=== PATIENT | male | born 1940 | race Caucasian/White ===

== ENCOUNTER 2025-02-12 12:44 | Inpatient (IN) | payer MEDICARE, SELFPAY ==
[2025-02-12] VITALS (31 sets, daily range): BP systolic 81–155; BP diastolic 45–104; BMI 30.4
--- NOTE | 2025-02-12 08:52 | EDRN ---
Pt in room when this RN assumed assignment.
--- NOTE | 2025-02-12 08:54 | ED.GENMED ---
History of Present Illness
<John Bennett MD, Resident - Last Filed: 02/12/25 10:26>
General
Chief Complaint: Back Pain
Source: patient and significant other
Time Seen by Provider: 02/12/25 08:38
Nursing documentation reviewed up to this point in time: agreed with
History of Present Illness
History of Present Illness:
84 year old male with a past medical history of hypertension comes to the ED with rigors, chills and right flank pain that started around 7 pm last night. He was treated for a kidney infection at [facility] around 5 weeks ago and he says he
had similar symptoms to that at the time. Following the infection, patient had issues with Urinary Retention and ended up going to [facility] where a urinary catheter was placed. He has been following up with Urology who have been helping him
manage the urinary cathether. His right sided flank pain is sharp in nature and does not radiate. He has not had any issues with urination and says that he has not noticed any blood in his urine. He does not feel febrile but has chills since last
night. He does not have any shortness of breath, chest pain, or headache.
Past History
<John Bennett MD, Resident - Last Filed: 02/12/25 10:26>
Past History
ED Past Medical History: HTN
ED Past Surgical History: Orthopedic (Bilateral Knee Replacement) and Other (Hernia repair)
Review of Systems
<John Bennett MD, Resident - Last Filed: 02/12/25 10:26>
Review of Systems
Allergies reviewed?: Yes
Constitutional: Reports chills; Denies fever
EENT: Reports no symptoms
Respiratory: Reports no symptoms
Cardiac: Reports no symptoms
ABD/GI: Reports no symptoms
: Reports frequency and flank pain; Denies dysuria or bleeding
Musculoskeletal: Reports no symptoms
Skin: Reports no symptoms
Neurological: Reports no symptoms
Endocrine: Reports no symptoms
Hematologic/Lymphatic: Reports no symptoms
Psychiatric: Reports no symptoms
Phy Exam
<John Bennett MD, Resident - Last Filed: 02/12/25 10:26>
General Physical Exam
General Presentation: moderate distress
General age: appears stated age
General Skin: warm and dry
General Habitus: normal
General Mental: alert
General Hydration: appears well hydrated
Cardiovascular Exam
Cardiovascular Exam: no edema, no murmur and tachycardia
Pulmonary Exam
Pulmonary Exam: lungs clear, no respiratory distress, no rales, no crackles, no rhonchi, no wheezing and no cough
Gastrointestinal Exam
Gastrointestinal Exam: non tender, soft and non distended
Musculoskeletal Exam
Musculoskeletal Exam: back tenderness (Right flank pain)
Sepsis
<John Bennett MD, Resident - Last Filed: 02/12/25 10:26>
Sepsis Screening
Sepsis Assessment: Sepsis
Sepsis Screening: Lactate >2mmol/L
Sepsis Screen
Sepsis Screen: Sepsis
Date: 02/12/25
Time: 10:25
Course
<John Bennett MD, Resident - Last Filed: 02/12/25 10:26>
Orders/Labs/Results
Orders:
Orders
02/12/25 08:49
IV Insert/Care/Rem.- Treatment PRN
0.9% Sodium Chloride 1000 ml [Nss] 1,000 ml IV BOLUS
Acetaminophen [Tylenol] 1,000 mg PO NOW STA
02/12/25 08:52
CT Abd/pel Without Iv Or Oral Urgent
Comment:
Reason For Exam: Right flank pain
02/12/25 09:10
Complete Blood Count/With Diff Urgent
Comprehensive Metabolic Panel Urgent
Lactic Acid Q4H
Comment: CANCEL 2nd LACTIC ACID IF 1st LACTIC ACID IS LESS THAN 2
Blood Culture Q30M
STEPHANIE Source: Blood/Venous
Specimen Description:
02/12/25 09:35
Urinalysis Reflex To Culture Urgent
Date Specimen was Collected: 02/12/25
Time Specimen was Collected: 09:34
Urine Microscopic Reflex Cult Urgent
Blood Culture Q30M
STEPHANIE Source: Blood/Venous
Specimen Description:
Urine Culture Urgent
STEPHANEI Source: U
Specimen Description:
Date Specimen was Collected: 02/12/25
Time Specimen was Collected: 09:34
02/12/25 10:03
CefTRIAXone [Rocephin] 2,000 mg IV NOW STA
02/12/25 13:00
Lactic Acid Q4H
Comment: CANCEL 2nd LACTIC ACID IF 1st LACTIC ACID IS LESS THAN 2
Abnormal Lab Results
02/12/25 02/12/25
09:10 09:35
MCH 31.1 H pg
(27.0-31.0)
Absolute Neuts (auto) 10.2 H 10^3/uL
(1.4-6.5)
Absolute Lymphs (auto) 0.4 L 10^3/uL
(1.2-3.4)
Neutrophils % 95.0 H %
(42.2-75.2)
Lymphocytes % 3.4 L %
(20.5-51.1)
Monocytes % 0.6 L %
(1.7-9.3)
Carbon Dioxide 20 L mmol/L
(22-30)
BUN 28 H mg/dl
(9-20)
Glucose 149 H mg/dl
(70-99)
Lactic Acid 3.7 H mmol/L
(0.7-2.0)
Ur Occult Blood Reflex 4+ A
(Negative)
Urine Nitrite (Reflex) Positive A
(Negative)
Leukocyte Esterase Rfl 3+ A
(Negative)
Urine Bacteria (Reflex) Moderate A
(Negative)
Urine Albumin (Reflex) 2+ A
(Neg - Trace)
02/12/25 09:10
02/12/25 09:10
Vital Signs
Initial and Last Documented VS:
Initial Vital Signs
Temp Pulse Resp BP Pulse Ox
98.8 F 115 18 155/104 96
02/12/25 08:13 02/12/25 08:13 02/12/25 08:13 02/12/25 08:13 02/12/25 08:13
Last Documented Vital Signs
Temp Pulse Resp BP Pulse Ox
98.4 F 111 25 152/66 93
02/12/25 09:17 02/12/25 09:30 02/12/25 09:30 02/12/25 09:22 02/12/25 09:30
<Julio Cesar Garcia, DO - Last Filed: 02/12/25 10:02>
Orders/Labs/Results
Orders:
Orders
02/12/25 08:49
IV Insert/Care/Rem.- Treatment PRN
0.9% Sodium Chloride 1000 ml [Nss] 1,000 ml IV BOLUS
Acetaminophen [Tylenol] 1,000 mg PO NOW STA
02/12/25 08:52
CT Abd/pel Without Iv Or Oral Urgent
Comment:
Reason For Exam: Right flank pain
02/12/25 09:10
Complete Blood Count/With Diff Urgent
Comprehensive Metabolic Panel Urgent
Lactic Acid Q4H
Comment: CANCEL 2nd LACTIC ACID IF 1st LACTIC ACID IS LESS THAN 2
Blood Culture Q30M
STEPHANIE Source: Blood/Venous
Specimen Description:
02/12/25 09:35
Urinalysis Reflex To Culture Urgent
Date Specimen was Collected: 02/12/25
Time Specimen was Collected: 09:34
Urine Microscopic Reflex Cult Urgent
Blood Culture Q30M
STEPHANIE Source: Blood/Venous
Specimen Description:
Urine Culture Urgent
STEPHANIE Source: U
Specimen Description:
Date Specimen was Collected: 02/12/25
Time Specimen was Collected: 09:34
02/12/25 10:03
CefTRIAXone [Rocephin] 2,000 mg IV NOW STA
02/12/25 13:00
Lactic Acid Q4H
Comment: CANCEL 2nd LACTIC ACID IF 1st LACTIC ACID IS LESS THAN 2
Abnormal Lab Results
02/12/25 02/12/25
09:10 09:35
MCH 31.1 H pg
(27.0-31.0)
Absolute Neuts (auto) 10.2 H 10^3/uL
(1.4-6.5)
Absolute Lymphs (auto) 0.4 L 10^3/uL
(1.2-3.4)
Neutrophils % 95.0 H %
(42.2-75.2)
Lymphocytes % 3.4 L %
(20.5-51.1)
Monocytes % 0.6 L %
(1.7-9.3)
Carbon Dioxide 20 L mmol/L
(22-30)
BUN 28 H mg/dl
(9-20)
Glucose 149 H mg/dl
(70-99)
Lactic Acid 3.7 H mmol/L
(0.7-2.0)
Ur Occult Blood Reflex 4+ A
(Negative)
Urine Nitrite (Reflex) Positive A
(Negative)
Leukocyte Esterase Rfl 3+ A
(Negative)
Urine Bacteria (Reflex) Moderate A
(Negative)
Urine Albumin (Reflex) 2+ A
(Neg - Trace)
02/12/25 09:10
02/12/25 09:10
Vital Signs
Initial and Last Documented VS:
Initial Vital Signs
Temp Pulse Resp BP Pulse Ox
98.8 F 115 18 155/104 96
02/12/25 08:13 02/12/25 08:13 02/12/25 08:13 02/12/25 08:13 02/12/25 08:13
Last Documented Vital Signs
Temp Pulse Resp BP Pulse Ox
98.4 F 111 25 152/66 93
02/12/25 09:17 02/12/25 09:30 02/12/25 09:30 02/12/25 09:22 02/12/25 09:30
<John Bennett MD, Resident - Last Filed: 02/12/25 10:26>
MDM/Problems Addressed
Differential Diagnosis Includes:
Sepsis due to Urinary Tract Infection, Nephrolithiasis, Lumbar spine sprain/slipped disk
MDM/Problems Addressed:
84 year old male with history of recent kidney infection and indwelling Gordon catheter comes to the ED with right sided flank pain along with chills and rigors that began last night.
Highly suspicious for sepsis due to urinary tract infection.
Will give 1L of fluid, draw Lactate+Blood cultures, CBC/CMP and check Urinalysis
Will get CT Abd/Pel w/o IV contrast to check for any urinary stones. Patient mentioned he may have hurt his back while lifting some soda as well.
Pain control with Tylenol for now and increase as needed
Lactate positive, Urine positive for infection, Will give dose of Ceftriaxone 2g and admit to hospital for further management of sepsis
CT Abd/Pel shows moderate/marked right perinephric stranding and a 0.3-0.4cm calculus in distal right ureter as well as an enlarged prostate gland
<John Bennett MD, Resident - Last Filed: 02/12/25 10:26>
*Pulse Oximetry
SaO2: 96
Oxygen Mode of Delivery: Room air
<Julio Cesar Garcia, DO - Last Filed: 02/12/25 10:02>
*Radiology
Radiology exam reviewed: radiology read reviewed
*Pulse Oximetry
Patient hypoxic: no
*Critical Care Note
Total Time (30-74mins, 75-104mins- exclusive of procedures): Not Applicable
ED Attending Note
<John Bennett MD, Resident - Last Filed: 02/12/25 10:26>
-
Portions of this chart may have been created with voice recognition software.� Occasional wrong word or��sound alike� substitutions may have occurred due to the inherent limitations of voice recognition software.
<Julio Cesar Garcia, DO - Last Filed: 02/12/25 10:02>
ED Attending Note
Patient seen and examined by attending physician: Yes
I performed a history and physical exam of patient and discussed management with resident, I reviewed resident's note and agree with documented findings and plan of care.: Yes
ED Attending Note:
Seen with resident examined independently 84-year-old male recent admission to [place] with urosepsis and bacteremia discharged to home developed urinary retention seen at [facility], catheter was placed followed up with his urologist failed
attempted removal replaced, now presents with chills shakes and back pain similar to his initial presentation to [place]
Discharge Plan
Departure
Patient Disposition: Admit
Date of Disposition: 02/12/25
Time of Disposition: 10:17
Admit to: Med/Surg
Presentation/result/management discussed w/ accepting MD/DO: Hospitalist
Condition: Fair
Discharge Problem:
Urinary tract infection
Prescriptions:
No Action
lisinopril 40 mg Tablet
40 mg PO DAILY
Referrals:
Trcae Myles MD [Family Provider, [facility]]
Interventions
Interventions:
*Risk Screen - Suicide Last Done: 02/12/25 09:00
*General Assessment Last Done: 02/12/25 08:58
*Neglect/Abuse Screening Last Done: 02/12/25 08:13
*ED- Fall Risk Assessment Last Done: 02/12/25 08:58
*ED COVID-19 Vaccine History Last Done: 02/12/25 08:58
ED-Musculoskeletal Assessment Last Done: 02/12/25 09:24
Discharge Date and Time
Print Language: MACEDONIAN
[2025-02-12] MEDS: NSS 1000 IV ×5 (09:09→23:22)
[2025-02-12] MEDS: TYLENOL 1000 MG PO (09:15)
[2025-02-12 09:21] LABS: Hematocrit 47.2 % (39.0-52.0); Hemoglobin 16.8 g/dL (13.0-18.0); Mean Corp Hgb Conc. 35.6 g/dL (33.0-37.0); Mean Corpuscular Volume 87.4 fL (80.0-94.0); Nucleated Red Blood Cells % 0 % (-); Platelet Count 182 10^3/uL (130-400); Red Cell Dist. Width 13.2 % (11.5-14.5)
--- NOTE | 2025-02-12 09:55 | EDRN ---
Dr. Garcia in room w/pt at this time.
[2025-02-12 09:58] LABS: Urine Character Clear (Clear)
[2025-02-12 10:12] LABS: Urine Red Blood Cell 0-2 /HPF (0-2); Urine Squamous Cell 0-2 /LPF (Few); Urine White Cell 0-2 /HPF (0-5)
[2025-02-12 10:15] LABS: ALT (SGPT) 19 U/L (0-50); AST (SGOT) 24 U/L (17-59); Albumin 4.3 g/dl (3.5-5.0); Alkaline Phosphatase 100 U/L (38-126); Blood Urea Nitrogen 28 mg/dl (9-20); Calcium 8.6 mg/dl (8.4-10.2); Carbon Dioxide 20 mmol/L (22-30); Chloride 107 mmol/L (98-107); Estimated Creatinine Clearance 58 ml/min; Glucose 149 mg/dl (70-99); Potassium 3.9 mmol/L (3.5-5.1); Sodium 140 mmol/L (135-145); Total Protein 7.0 g/dl (6.3-8.2); eGFR 59.63
[2025-02-12] MEDS: ROCEPHIN 2000 MG IV (10:38)
--- NOTE | 2025-02-12 10:48 | EDRN ---
Dr. Elyse Webb Resident w/ hospitalist group in room w/ pt at this time.
--- NOTE | 2025-02-12 10:59 | HPS.HSE ---
Family Physician
<Donnell Bustillos MD, Resident - Last Filed: 02/12/25 12:19>
-
Family Physician: Trace Myles
Chief Complaint
<Donnell Bustillos MD, Resident - Last Filed: 02/12/25 12:19>
-
Right flank pain
History of Present Illness
This is an 84-year-old male with past medical history of hypertension, CVA, BPH, chronic urinary retention with chronic Gordon, recurrent UTIs who presents to ED complaining of ongoing right flank pain that started last night. In addition patient
admits to fever and chills that started this morning. Patient reports pain is sharp, rates his pain as a 7 out of 10 that does not radiate anywhere else. Pertinent to patient's history, patient with history of BPH, recurrent UTI, chronic urinary
retention with a chronic Gordon. Reports he was admitted at [facility] 1 month ago for bacteremia. He returned back to [facility] a few days after discharge due to urinary retention. A catheter was placed in the ED, and he was asked
to follow-up with urology as an outpatient. Patient states he has had multiple issues with urinary retention and failed attempted removal, and has had multiple ED visits including [facility], [facility] for urinary catheter
placement. He follows his urologist Dr. Rosalino Redd at [facility], and a plan was to perform a procedure(name Unk) on 03/03. He denies blood in his urine. Denies recent antibiotic use.
Upon presentation to the ED, BP 155/104, pulse 115, temperature 98.8, respiratory rate 18, O2 sat 96% on room air.� Laboratory shows WBC 10.7, hemoglobin 16.8, platelets 182.� BMP shows normal electrolytes, glucose 149 lactic acid 3.7.� Urinalysis
positive.
Medical History
<Donnell Bustillos MD, Resident - Last Filed: 02/12/25 12:19>
Past Medical History
Past Medical History: Reports Other (hypertension, CVA, BPH, chronic urinary retention with chronic urinary catheter, recurrent UTIs, essential tremor, chronic insomina)
Past Surgical History: Reports Orthopedic
Social History
Tobacco: Former Smoker
Alcohol: Occasional
Drug: None
Personal:
Living: With Family
Family History
Family History: Not pertinent
Allergies / Home Medications
Allergies reflects when Allergies were last updated in [employer].
Home Medications with original date entered in [employer]
Allergy/Medication List:
Allergies
Allergy/AdvReac Type Severity Reaction Status Date / Time
Sulfa (Sulfonamide Allergy Unknown Verified 02/12/25 08:13
Antibiotics)
tetracycline Allergy Unknown Verified 02/12/25 08:18
Home Medications
cyanocobalamin (vitamin B-12) 1,000 mcg tablet 1,000 mcg PO DAILY 02/12/25
diphenhydramine 25 mg-acetaminophen 500 mg tablet (Acetaminophen PM) 2 tab PO HS 02/12/25
finasteride 5 mg tablet 5 mg PO DAILY 02/12/25
hydrochlorothiazide 25 mg tablet 25 mg PO DAILY 02/12/25
lisinopril 40 mg tablet 40 mg PO DAILY 02/12/25
meloxicam 15 mg tablet 15 mg PO DAILY 02/12/25
nortriptyline 10 mg capsule 10 mg PO HS 02/12/25
nortriptyline 10 mg capsule 10 mg PO HSPRN PRN sleep 02/12/25
primidone 50 mg tablet 50 mg PO HS 02/12/25
primidone 50 mg tablet 100 mg PO DAILY 02/12/25
tamsulosin 0.4 mg capsule (Flomax) 0.8 mg PO QPM 02/12/25
Review of Systems
<Donnell Bustillos MD, Resident - Last Filed: 02/12/25 12:19>
-
A 12 point ROS was completed and negative except as noted: Yes
Constitutional: Reports Other (All review of system reviewed and negative except as documented in HPI)
Physical Exam
<Donnell Bustillos MD, Resident - Last Filed: 02/12/25 12:19>
Vital Signs
Vital Signs
Temp Pulse Resp BP Pulse Ox
98.4 F 106 23 136/71 92
02/12/25 09:17 02/12/25 10:45 02/12/25 10:45 02/12/25 10:00 02/12/25 10:45
Physical Exam
General: Well Developed, No Apparent Distress and Chills
Respiratory: Clear
Cardiac: S1/S2 and Regular Rhythm
GI: Soft, Non Distended, Normal Bowel Sounds and Tender (right lower quadrant, with flank pain)
Genito-urinary: Clear Urine and Other (urinary catheter)
Musculoskeletal: No Edema
Neuro: Awake, Alert, Oriented and AO x 3
<Bong Carter MD - Last Filed: 02/12/25 12:36>
Physical Exam
General: Pain
Psych: Calm
Laboratory Results
<Donnell Bustillos MD, Resident - Last Filed: 02/12/25 12:19>
-
02/12/25 09:10
02/12/25 09:10
Laboratory Results
Lactic Acid 3.7 mmol/L (0.7-2.0) H 02/12/25 09:10
Total Bilirubin 1.1 mg/dl (0.2-1.3) 02/12/25 09:10
AST 24 U/L (17-59) 02/12/25 09:10
ALT 19 U/L (0-50) 02/12/25 09:10
Alkaline Phosphatase 100 U/L (38-126) 02/12/25 09:10
Impression/Plan
<Donnell Bustillos MD, Resident - Last Filed: 02/12/25 12:19>
-
Assessment/plan
#Severe sepsis with lactic acidosis POA secondary to obstructing ureteral stone and Gordon catheter
-CT abdomen-Approximate 0.3-0.4 cm calculus in the distal right ureter, just proximal to the right ureterovesical junction with mild right hydroureteronephrosis and moderate to marked right perinephric stranding. Mild left perinephric stranding
without findings to suggest left-sided obstructive uropathy.
-Given IV ceftriaxone in the ED,
-Switch Abx to IV Cefepime and Vancomycin.
-Lactate on presentation 3.8, trend lactate to normal
-Urinalysis positive, urine cultures pending
-Blood cultures pending
-IV fluids, will do generous IVF for now. Expect post stone manipulation sepsis
-Continue pain Meds with Tylenol, IV Dilaudid
-d/w urologist , plan to OR for stent Vs Perc.
-Appreciate urology & ID
#Chronic urinary retention with chronic Gordon
#BPH, per patient : very large
-Definitive Treatment after treating the infection per OP setting
-Continue finasteride, Flomax
-Continue Gordon catheter
-Monitor output
-Primary urologist Dr Redd at [facility]
#Essential Hypertension
-Will hold lisinopril, hctz to protect kidney
-Will use PRN hydralazine
#Chronic Insomnia
-Continue nortriptyline
#Essential Tremor
-Continue primidone
#History of CVA
-Continue aspirin
#Small hiatal hernia
-Asymptomatic, monitor
CODE STATUS full code
DVT prophylaxis Heparin subcu
--- NOTE | 2025-02-12 11:06 | EDRN ---
Pharmacist called about vancocin order at this time.
[2025-02-12] MEDS: VANCOCIN 540 MG IV (11:23)
--- NOTE | 2025-02-12 12:18 | EDRN ---
Report given to Maritza Rubio RN in OR at this time. Dr. Coleman has the permit.
--- NOTE | 2025-02-12 13:08 | W.PN.URO.CBU ---
Today's Communication / Plan
-
to op room
Assessment / Plan
-
rt stone with sepsis syndrome will attempt stent
Diagnosis
-
Date of Service: February 12, 2025
-
Patient Diagnosis:rt ureteral stone in pt rt renal obstruction ans sepsis last week fhas puga associate uti
Post Op Day:
Subjective
-
feels lousy and rt colic
Objective
-
Vital Signs
Temp Pulse Resp BP Pulse Ox
98.4 F 108 27 128/69 96
02/12/25 09:17 02/12/25 12:15 02/12/25 12:15 02/12/25 12:00 02/12/25 12:15
Intake and Output
02/11/25 02/12/25 02/13/25
06:59 06:59 06:59
Output Total 200 / 200
Balance -200 / -200
Output:
Urine, Puga 200 / 200
Laboratory Results
02/12/25 09:10
02/12/25 09:10
Review of Systems
-
: Flank Pain and Difficulty Voiding
Physical Exam
-
General - well developed, well nourished, no acute distress
Chest - clear bilaterally
Abdomen - soft, non-tender, positive bowel sounds, no CVAT, no incisional pain or distention
Genitalia - normal
Rectal - normal
Skin - warm & dry with no rash
Neuro - AOx3, no motor deficits
Extremities - no clubbing, no cyanosis, no edema
Incision - clean, dry
Dressing - clean, dry, intact
Care Review
Data Reviewed
Discussed with: Hospitalist, Nursing and Family
CT Scan: Image Pers Reviewed
--- NOTE | 2025-02-12 14:14 | W.SUR.POST ---
Surgical Immediate Post Op
Note
Pre Op Diagnosis: sepsis with obstructing distal rt uretal stone
Post Op Diagnosis: same
Procedure Performedcysto stone manipulation stent
Primary Surgeon: huong
Secondary Surgeons:
Anesthesiagenral dr cobb:
Estimated Blood Loss: 1
Fluids: nss
Drains/Shunts:6 fr 24 cm jj stent
Specimens/Cultures:
Doppler/Duplex/Angio (Y/N):
Complications: 0
Operative Findings:
obstructing stone manipulated abnd dstentted
--- NOTE | 2025-02-12 14:27 | W.PN.UPDATE ---
Update Note
Progress Note Update
Addendum
Discussed with Dr. Coleman. Patient tolerated the procedure but remained with high fever, tachycardia, recommend ICU observation overnight.
Consult [facility], discussed with Dr. Kelley, appreciate help.
end
--- NOTE | 2025-02-12 14:33 | PHA.VAN.IN ---
Assessment
- Assessment
Renal Function: Unknown baseline
Concomitant Antimicrobials: cefepime
Plan
- Plan
Initial / Loading Dose: 2000mg - 02/12 11:23
Maintenance Regimen: dosing by level given unknown baseline
Monitoring: random 02/13 06
Pharmacokinetics Vancomycin I
- -
Patient Age: 84
Patient Sex: Male
Vancomycin Day #: 1
Indication: Genito-Urinary Tract
Requesting Provider: Dr. Carter
Pertinent Antimicrobial Allergies:
Sulfonamide antibiotics - unknown; > 50 years ago
tetracycline - unknown
Height / Weight:
Height 6 ft 1 in
Actual Weight 104.4 kg
Pertinent Past Medical History: BMI ~30
- Vital Signs / Lab Results
Temp Pulse Resp BP Pulse Ox
98.4 F 103 18 124/50 98
02/12/25 09:17 02/12/25 14:15 02/12/25 14:15 02/12/25 14:15 02/12/25 14:15
Lab Results - Hematology
02/12/25
09:10
WBC 10.7
Lab Results - Chemistry
02/12/25
09:10
BUN 28 H
Creatinine 1.2
Estimated Creat Clear 58
Albumin 4.3
02/12/25 02/12/25
09:10 13:00
Lactic Acid 3.7 H Cancelled
Lab Results - Urine
02/12/25
09:35
Urine Nitrite (Reflex) Positive A
Leukocyte Esterase Rfl 3+ A
Urine WBC (Reflex) 0-2
Ur Squamous Epith Cells 0-2
Urine Bacteria (Reflex) Moderate A
[2025-02-12 16:16] LABS: Glucose - Point of Care 130 mg/dl (70-99)
--- NOTE | 2025-02-12 16:17 | CON.INTV ---
Consultation
Consultation Request
Date/Time Consultation Requested: 02/12/2025
Date/Time Consultation Performed: 02/12/2025
Requesting Provider: Dr. Carter
Performing Provider: Dr. Tristen Kelley
Reason for Consultation: Severe sepsis
Medical History
-
History of Present Illness:
84-year-old man who was admitted to the hospital on 02/12/2025 complaining of right renal colic, fevers, rigors at home. Patient has signs of severe sepsis with increased lactic acid, borderline hemodynamics.
Patient has history of BPH which was significant.
CT of the chest was consistent with pyelonephritis, right hydronephrosis obstructive nephrolithiasis.
Underwent emergent cystoscopy with ureteral stent placement. During the procedure patient developed hypotension requiring fluid resuscitation.
Concerns for evolving septic shock. Transferred to the critical care unit for close monitoring and possible pressor support.
Past Medical History
Past Medical History: Other (See assessment and plan)
Social History
Tobacco: Former Smoker
Alcohol: Occasional
Drug: None
Personal:
Living: With Family
Family History
Family History: Reviewed & Not Pertinent
Allergies / Home Medications
Allergies
Allergy/AdvReac Type Severity Reaction Status Date / Time
Sulfa (Sulfonamide Allergy Unknown Verified 02/12/25 08:13
Antibiotics)
tetracycline Allergy Unknown Verified 02/12/25 08:18
Home Medications
�Medication �Instructions �Recorded �Confirmed �Last Taken �Type
cyanocobalamin (vitamin B-12) 1,000 mcg PO DAILY 02/12/25 02/12/25 02/12/25 History
1,000 mcg tablet
diphenhydramine 25 2 tab PO HS 02/12/25 02/12/25 02/11/25 History
mg-acetaminophen 500 mg tablet
(Acetaminophen PM)
finasteride 5 mg tablet 5 mg PO DAILY 02/12/25 02/12/25 02/12/25 History
hydrochlorothiazide 25 mg tablet 25 mg PO DAILY 02/12/25 02/12/25 02/12/25 History
lisinopril 40 mg tablet 40 mg PO DAILY 02/12/25 02/12/25 02/12/25 History
meloxicam 15 mg tablet 15 mg PO DAILY 02/12/25 02/12/25 Unknown History
nortriptyline 10 mg capsule 10 mg PO HS 02/12/25 02/12/25 02/11/25 History
nortriptyline 10 mg capsule 10 mg PO HSPRN PRN sleep 02/12/25 02/12/25 Unknown History
primidone 50 mg tablet 50 mg PO HS 02/12/25 02/12/25 02/11/25 History
primidone 50 mg tablet 100 mg PO DAILY 02/12/25 02/12/25 02/12/25 History
tamsulosin 0.4 mg capsule (Flomax) 0.8 mg PO QPM 02/12/25 02/12/25 02/11/25 History
Review of Systems
-
History Source: Patient
All other systems: Negative unless noted
Vitals / Labs / Diagnostic Testing
Vital Signs
Temp Pulse Resp BP Pulse Ox
100.2 F 103 24 103/50 93
02/12/25 15:45 02/12/25 15:45 02/12/25 15:45 02/12/25 15:45 02/12/25 15:45
Lab Data
02/12/25 09:10
02/12/25 09:10
Diagnostic Testing:
Physical Exam
-
HEENT: Normocephalic
Cardiovascular: S1/S2
Respiratory: Clear and Non-Labored Respirations
GI: Soft, Non Distended and Other (Gordon in place with clear urine)
Neurology: Awake, Alert and No Motor Deficits
Skin: Warm
General: Comfortable
Assessment
-
Severe sepsis/hypotension
Obstructive uropathy: Hydronephrosis and pyelonephritis on CAT scan on the right.
Status post emergent double-J stent placement with cystoscopy 02/12/2025
Lactic acidosis-3.7
Metabolic acidosis
Conditions present prior admission:
Hypertension
BPH-severe
CVA
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
Recurrent UTI
Essential tremor
Chronic insomnia
Former smoker
Assessment and plan:
Critically ill-severe sepsis and possibly evolving septic shock postprocedure.
Source is urinary-obstructive uropathy with right obstructing nephrolithiasis with hydronephrosis and pyelonephritis.
-
Agree with broad-spectrum antibiotic
Follow fever curve
Follow-up blood culture and urine culture
-
IV fluid resuscitation-normal saline 150 cc an hour.
Levophed will be used if blood pressure persistently under 65 mmHg
Follow-up urinary output
Follow renal function
-
Will trend lactic acid
-
Urology correspondence reviewed-Gordon will be in place.
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
-
Advance diet as tolerated
DVT prophylaxis heparin subcu.
Data review:
CT abdomen pelvis 02/12/2025:
0.3-0.1 cm calculus seen in the distal right ureter-just proximal to the right ureterovesical junction with mild distal right ureteral distention.
Mild prostate enlargement
Small to moderate left inguinal hernia
Right renal collecting system and right ureteral dilatation. There is moderate to marked right/left perinephric stranding.
-
Critical care statement: A total of 33 minutes of critical care time was provided for this patient today. This includes management of unstable vital signs, evaluation of the patient at bedside, reviewing the patient's pertinent medical records
including ventilator settings, arterial blood gases, radiographs, microbiology, laboratory evaluations and discussion with primary team, critical care nursing, and respiratory therapy.
--- NOTE | 2025-02-12 16:43 | PTCARENOTE ---
pt received from pacu. pt aaox3. states no pain. room air breath sounds diminished. ivf running. puga in place draining yellow. at bedside reviewed plan of care.
[2025-02-12] MEDS: FLOMAX 0.8 MG PO (18:04)
--- NOTE | 2025-02-12 18:24 | CON.ID ---
Consultation
-
Date/Time Consultation Requested: 02/12/25
Date/Time Consultation Performed: 02/12/25
Requesting Provider: Dr Cristo Webb
Performing Provider: Dr Nichole
Reason for Consultation: obstructive uropathy with nephrolithiasis and concern for uro-sepsis
Chief Complaint / Past History
Chief Complaint
Patient was awakened from sleep last PM with severe back ache with history of recent recent kidney last month and placement of chronic in-dwelling puga catheter
History of Present Illness
The patient presented at the ED and was seen by urology in setting of obstructive uropathy found on imaging with stranding noted on the left kidney without obstruction and with stranding in the right kidney with obstructive stone noted in the right
distal ureter with mild right hydroureter
The patient had urologic procedure today wth placement of temporary stent placement
Concerning findings of leukocytosis with WBC 10.7 with 95% pMN and LA of 3.7 were present patient emained afebrile
Past History
Past Medical History: CVA, HTN and Other (BPH, frequent UTI's,tremor,insomnia)
Past Surgical History: Orthopedic
Allergy History:
Sulfa (Sulfonamide Antibiotics) Allergy (Verified 02/12/25 08:13)
Unknown
tetracycline Allergy (Verified 02/12/25 08:18)
Unknown
Medications Reviewed: Yes
Social History
Tobacco: Former Smoker
Alcohol: Occasional
Drug: None
Personal:
Living: With Family
Employment: Employed
Family History
Family History: Not Pertinent
Review of Systems
Review of Systems
Genital / Urological: Hematuria, Stones, Flank Pain and Other (back pain)
All systems: All other systems were reviewed and were negative
Vital Signs
Temp Pulse Resp BP Pulse Ox
98.1 F 98 23 81/46 93
02/12/25 16:00 02/12/25 18:15 02/12/25 18:15 08/05/25 18:08 02/12/25 18:15
Physical Exam
Physical Exam
Constitutional: No Acute Distress, Well Developed, Acutely Ill, Non-toxic and Obese
Head: Normocephalic
Eyes: Pupils Equal, Pupils Round, No Conjunctival Hemorrhage and Sclera Anicteric
Pharynx: Benign
Oral: No Thrush and No Ulcers
Cardiovascular: Regular Rate
Pulmonary: Clear, Symmetric and Non Labored
Gastrointestinal: Soft, Tender and Decreased Bowel Sounds
Genito-Urinary: Puga, CVA Tenderness and Turbid Urine
Skin: Warm and Dry
Wound: None
Neurological: Awake, Alert, Oriented, AO x 3 and No Motor Deficits
Psychological: Calm
Lab / Diagnostic Study Results
02/12/25 09:10
02/12/25 09:10
Abs Immat Gran (auto) 0.0 10^3/uL (0-0.05) 02/12/25 09:10
Absolute Neuts (auto) 10.2 10^3/uL (1.4-6.5) H 02/12/25 09:10
Absolute Lymphs (auto) 0.4 10^3/uL (1.2-3.4) L 02/12/25 09:10
Absolute Monos (auto) 0.1 10^3/uL (0.1-0.6) 02/12/25 09:10
Absolute Basos (auto) 0.0 10^3/uL (0-0.2) 02/12/25 09:10
Immature Gran % 0.4 % (0-0.5) 02/12/25 09:10
Neutrophils % 95.0 % (42.2-75.2) H 02/12/25 09:10
Lymphocytes % 3.4 % (20.5-51.1) L 02/12/25 09:10
Monocytes % 0.6 % (1.7-9.3) L 02/12/25 09:10
Eosinophils % 0.2 % (0-6) 02/12/25 09:10
Basophils % 0.4 % (0-2) 02/12/25 09:10
Lactic Acid 5.0 mmol/L (0.7-2.0) H* 02/12/25 16:29
Ur Squamous Epith Cells 0-2 /LPF (Few) 02/12/25 09:35
Microbiology Results
Micro:
02/12/25 09:35 Urine Culture - Pending
Urine
02/12/25 09:35 Blood Culture - Pending
Blood/Venous
02/12/25 09:10 Blood Culture - Pending
Blood/Venous
Assessment / Plan
1. Patient personally evaluated and examined by me in PAR where he is awake and conversant and able to provide good history
2. Nephrolithiasis with obstruction relieved by stent placement
3. Precautionary empiric antibiotic provided pending culture results
4. Worrisome laboratory values suggesting urosepsis with patient placed on Ceftriaxone in ED upon arrival
post procedure patient was placed on Vancomycin/ Cefepime in view of above
Thank you for Infectious Disease Consultation.
The ID team will continue to folow with you.
Please callus with any questions or concerns
Care Review
Total Time Spent with Patient (in minutes): 55
[2025-02-12] MEDS: HEPARIN 5000 UNITS SC (19:14)
--- NOTE | 2025-02-12 19:53 | PTCARENOTE ---
Assumed care of pt at 1900. Pt is A/O x4, no c/o pain. SR with 1st deg AVB on monitor, currently on 2LNC with SpO2 94-95%. BP in 80s/40s with MAPs in low 60s at start of shift. 1L NS bolus ordered/administered, see EMAR. Assessment as documented in
nursing shift assessment flowsheet.
[2025-02-12] MEDS: MYSOLINE 50 MG PO (21:22)
[2025-02-12] MEDS: PAMELOR 10 MG PO (21:23)
[2025-02-12] MEDS: MELATONIN 5 MG PO (21:39)
[2025-02-12] MEDS: TYLENOL 650 MG PO (21:39)
[2025-02-12] MEDS: LEVOPHED 250 IV (22:03)
[2025-02-13] VITALS (48 sets, daily range): BP systolic 80–141; BP diastolic 36–81; BMI 31.9
--- NOTE | 2025-02-13 00:04 | PTCARENOTE ---
Assessment unchanged. Repeat lactic was 6.4, discussed with Jeremiah KATZ and another NS bolus ordered for patient, see EMAR. Next lactic acid level in for 0300. Levophed needed to be started at around 2205 for MAPs persistently lower than 65
despite fluid bolus, see med titration flowsheet on worklist for details. SR 70s-80s on monitor, SpO2 92-95% on 2LNC.
[2025-02-13 03:30] LABS: Hematocrit 38.6 % (39.0-52.0); Hemoglobin 13.6 g/dL (13.0-18.0); Mean Corp Hgb Conc. 35.2 g/dL (33.0-37.0); Mean Corpuscular Volume 89.6 fL (80.0-94.0); Platelet Count 139 10^3/uL (130-400); Red Cell Dist. Width 14.1 % (11.5-14.5)
[2025-02-13 03:51] LABS: AST (SGOT) 30 U/L (17-59); Albumin 3.1 g/dl (3.5-5.0); Alkaline Phosphatase 60 U/L (38-126); Blood Urea Nitrogen 35 mg/dl (9-20); Calcium 6.6 mg/dl (8.4-10.2); Carbon Dioxide 17 mmol/L (22-30); Chloride 110 mmol/L (98-107); Estimated Creatinine Clearance 51 ml/min; Glucose 214 mg/dl (70-99); Potassium 4.6 mmol/L (3.5-5.1); Sodium 139 mmol/L (135-145); Total Protein 5.4 g/dl (6.3-8.2); eGFR 49.56
[2025-02-13] MEDS: NSS IV (04:00)
[2025-02-13 04:10] LABS: ALT (SGPT) < 30 U/L (0-50)
--- NOTE | 2025-02-13 04:20 | PTCARENOTE ---
Assessment unchanged. Remains on Levophed, highest 8mcg/min so far but have been able to titrate down, see med titration flowsheet. Calcium gluconate rider ordered as well as IVF with bicarb, based on this AM's labs. Remains SR with 1st deg AVB on
monitor, HR 70s-80s.
[2025-02-13 04:42] LABS: Absolute Neutrophils -Man Diff 37.0 10^3/uL (1.4-6.5); Anisocytosis 2+; Normal RBC Morphology No; Platelets Checked Yes; Total Cells Counted 100
[2025-02-13] MEDS: SODIUM BICARBONATE 1150 MEQ IV (04:47)
[2025-02-13] MEDS: CALCIUM GLUCONATE 130 MG IV (04:47)
[2025-02-13] MEDS: MAXIPIME 1000 MG IV ×3 (08:01→20:41)
[2025-02-13] MEDS: LEVOPHED 250 IV (08:01)
[2025-02-13] MEDS: PROSCAR 5 MG PO (08:02)
[2025-02-13] MEDS: MYSOLINE 100 MG PO (08:02)
[2025-02-13] MEDS: STERILE WATER FOR INJECTION 10 ML IV ×3 (08:02→20:41)
[2025-02-13] MEDS: HEPARIN 5000 UNITS SC ×3 (08:02→23:03)
--- NOTE | 2025-02-13 08:37 | W.PN.HOSP.TC ---
Addendum entered and electronically signed by Bong Carter MD 02/13/25 10:54:
Addendum
Gram-negative bacteremia
End
Original Note:
Today's Communication/Plan
-
IVF
IV Abx
Pressure support
Assessment / Plan
Assessment / Plan
Physical Exam
General: No respiratory distress.
HEENT: no deformities.
Pulmonary: No wheezes or rales. Limited.
Cardiac: S1/S2 and Regular Rhythm. no Tachycardia.
GI: Soft, obese, Normal Bowel Sounds.
Genito-urinary: Clear Urine and Other (urinary catheter)
Musculoskeletal: No Edema
Neuro: Awake, Alert, Oriented and AO x 3. He followed commands. No tremor.
Psych: calm.
Assessment and plan
#Septic shock
Severe sepsis with lactic acidosis.
He feels tired
Less pain in right flank
Can cut back on IVF to avoid fluid overload
on low dose Levophed, hope to wean off
Daily weight
Empiric broad-spectrum antibiotic including cefepime and vancomycin
Pain control with Tylenol, IV Dilaudid
Blood and urine culture are drawn
Discussed with urologist on-call, plan to do urology intervention to relieve right hydronephrosis with stent, if not possible to try percutaneous nephrostomy. Keep patient n.p.o. for now
Appreciate ID and urology help
# Right hydronephrosis with obstructing distal ureteral stone s/p cysto, stone manipulation, stent placement on 02/[address] Coleman
# Acute kidney injury.
Metabolic acidosis
Continue Gordon catheter, status post right ureteral stent
IV fluid
# Hypocalcemia
# History of prostatic hypertrophy with large enlarged prostate
Continue home medication. Definitive treatment with outpatient urologist after treating obstructive issue and infection.
# essential hypertension, hold hydrochlorothiazide and lisinopril while hypotension and renal insufficiency.
# History of insomnia & essential tremor
# History of CVA
# Obesity, BMI 31
Total time spent to see the patient, examine the patient, review data and lab results, discuss treatment plan with patient, nursing staff around 55 minutes
Anticipated Discharge: > 48 hours
Subjective/Interval History
-
Date of Service: February 13, 2025
he reports feeling tired
less right/ back pain
no chest pain
Objective Data
-
Labs:
Laboratory Results
02/13/25
03:09
WBC 41.2 H*
Hgb 13.6
Hct 38.6 L
Plt Count 139 D
Sodium 139
Potassium 4.6
Chloride 110 H
Carbon Dioxide 17 L
BUN 35 H
Creatinine 1.4 H
Glucose 214 H
Calcium 6.6 L* D
Total Bilirubin 0.5
AST 30
ALT < 30
Alkaline Phosphatase 60
Vital Signs:
Vital Signs
Temp Pulse Resp BP Pulse Ox
97.6 F 80 16 89/46 92
02/13/25 07:39 02/13/25 06:35 02/13/25 06:35 02/13/25 06:35 02/13/25 06:35
I&O
02/12/25 02/13/25 02/14/25
06:59 06:59 06:59
Intake Total 4943.1 / 5090.6 295.0 / 295.0
Output Total 840 / 840
Balance 4103.1 / 4250.6 295.0 / 295.0
--- NOTE | 2025-02-13 10:31 | W.PN.INTV ---
Today's Communication / Plan
Recommendations
Continue antibiotic
Discontinue vancomycin
Follow-up blood cultures and urine [id number] bacteremia noted
Continue bicarbonate drip, repeat BMP now. Will adjust IV fluids as necessary
Advance diet
Maintain Gordon
Remains in critical care until Levophed discontinued
Assessment
-
84-year-old man with past medical history significant for BPH, chronic insomnia, former smoker who was admitted initially for obstructive uropathy with pyelonephritis. Underwent cystoscopy with stent placement and relief of right ureteral stent
obstructive kidney stone. During the operating room he developed tachycardia, hypotension and high fevers transferred to the critical care unit for involving severe sepsis
Septic shock
Obstructive uropathy: Hydronephrosis and pyelonephritis on CAT scan on the right.
Status post emergent double-J stent placement with cystoscopy 02/12/2025
Lactic acidosis-3.7
Leukocytosis
Metabolic acidosis
Acute kidney injury
Conditions present prior admission:
Hypertension
BPH-severe
CVA
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
Recurrent UTI
Essential tremor
Chronic insomnia
Former smoker
Assessment and plan:
Critically ill-severe sepsis and possibly evolving septic shock postprocedure-septic shock developed overnight requiring Levophed.
Source is urinary-obstructive uropathy with right obstructing nephrolithiasis with hydronephrosis and pyelonephritis.
-
Continue broad-spectrum antibiotics
Gram-negative bacteremia noted-await for identification.
Follow urinary culture
Discontinue vancomycin
Follow fever curve-improved.
Severe leukocytosis noted-follow.
-
Transition to bicarbonate drip.
Repeat BMP if acidosis improved will discontinue
Encourage oral intake
Continue Levophed-requirements improved to 4 mics per minute. Continue to wean down to maintain mean arterial blood pressure 65 mmHg.
Follow-up urinary output
Follow renal function
-
Lactic acid trending lower
Follow renal function, has developed JOSÉ likely due to sepsis/prerenal insult.
IV fluid as above
Encourage oral intake
Repeat BMP
-
Urology correspondence reviewed-Gordon will be in place.
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
Urology following the patient.
-
Advance diet as tolerated
DVT prophylaxis heparin subcu.
Remain ICU level of care until Levophed discontinued
Data review:
CT abdomen pelvis 02/12/2025:
0.3-0.1 cm calculus seen in the distal right ureter-just proximal to the right ureterovesical junction with mild distal right ureteral distention.
Mild prostate enlargement
Small to moderate left inguinal hernia
Right renal collecting system and right ureteral dilatation. There is moderate to marked right/left perinephric stranding.
-
Critical care statement: A total of 34 minutes of critical care time was provided for this patient today. This includes management of unstable vital signs, evaluation of the patient at bedside, reviewing the patient's pertinent medical records
including ventilator settings, arterial blood gases, radiographs, microbiology, laboratory evaluations and discussion with primary team, critical care nursing, and respiratory therapy.
Subjective Dataa
Subjective Data
Date of Service:
Date of Service: February 13, 2025
Chief Complaint: Core Loader Follow Up (Septic shock)
Subjective:
This morning sitting in the edge of the bed
Denies abdominal pain, nausea or vomiting
On Levophed
Review of Systems
Cardiopulmonary: Dyspnea (n), Dyspnea on Exertion (n) and Cough
GI: Abdominal Pain (n), Nausea (n) and Vomiting (n)
Objective Data
Data Reviewed
Vital Signs / I&O / Oxygen:
Vital Signs
Temp Pulse Resp BP Pulse Ox
97.6 F 80 16 89/46 92
02/13/25 07:39 02/13/25 06:35 02/13/25 06:35 02/13/25 06:35 02/13/25 06:35
Intake and Output
02/12/25 02/13/25 02/14/25
06:59 06:59 06:59
Intake Total 4943.1 / 5090.6 295.0 / 295.0
Output Total 840 / 840
Balance 4103.1 / 4250.6 295.0 / 295.0
SaO2 92
Nasal Cannula flow liters per 2
minute
Physical Exam
General: Respiratory Distress and Comfortable
HEENT: Normocephalic
Cardiovascular: S1-S2 and Regular Rhythm
Respiratory: Clear and Non-Labored Respirations
GI: Soft, Distended (Obese) and Other (Gordon in place with clear urine)
Neurology: Awake, Alert and No Motor Deficits
Skin: Warm
Labs/Micro/Reports
Lab Data
02/13/25 03:09
Microbiology
02/12/25 09:10 Blood/Venous Blood Culture - Preliminary
Proteus species
02/12/25 09:10 Blood/Venous Gram Stain - Final
02/12/25 09:35 Blood/Venous Blood Culture - Preliminary
Positive culture in progress
02/12/25 09:35 Blood/Venous Gram Stain - Final
[2025-02-13] MEDS: NEBCIN 55 MG IV (10:56)
--- NOTE | 2025-02-13 10:57 | CM ---
Initial assessment completed with patient who lives with his in a rancher style home with basement, 1 step to enter. [employer] patient was independent in ADL's and ambulation, drives, is active with gardening and just painted the kitchen. In the home
is a commode, RW and SPC's which patient does not use. No in-home services. No service. Does have a HC POA. PCP is Dr. Trace Myles and Pharmacy is [facility] on [address] in [place]. Discharge POC: Anticipate home with
no needs unless discharging with puga. Then possibly HH RN.
[2025-02-13 11:10] LABS: Glycohemoglobin (HgbA1c) 5.4 % (4.0-5.6)
--- NOTE | 2025-02-13 11:12 | W.CON.NEPH ---
Consultation
-
Date/Time Consultation Requested: 02/13/25 0625
Date/Time Consultation Performed: 02/13/25 1030
Requesting Provider: Bong Gant
Performing Provider: Hilary Valente
Reason for Consultation: JOSÉ, met acidosis
Medical History
-
Chief Complaint: Right renal colic
History of Present Illness:
84 years old male with PMH of K stone, HTN on HCTZ, lisinopril, BPH on Tamsulosin and Finasteride, chr hand tremor takes Primidone, chr pain on Meloxicam came to ER with right renal colic associated with fever and rigors at home on 02/12. He reports
admitting to [facility] over 1month ago for similar complaints and treated for bacteremia/UTI, no interventions done. After his d/c he had urine retention and went to [facility] and had puga catheter placed and there was discussion of prostate
surgery. Meantime he developed with renal colic and shaking hence presented to ER. Patient was diagnosed with severe sepsis and lactic acidosis, hypotension on pressor. CT abd with out contrast shows right obst stone with hydro and underwent
stent placement. Through night L acid increased to 6.4, now improving to 3.4 this am, his cr was at 1.2 on admit and up at 1.4. HIs met acidosis is worsening despite improvement of L acid hence nephrology consulted. He offers no CP or sob. No abd
pain or n/v. Hand tremors chronic. WBC is worse to 41 from 10. BLd cx +ve for GNB.
Past Medical History
hypertension, CVA, BPH, chronic urinary retention with chronic urinary catheter, recurrent UTIs, essential tremor, chronic insomina
Social History
Tobacco: Former Smoker
Alcohol: Occasional
Drug: None
Personal:
Living: With Family
Family History
Family History: Not Pertinent
Allergies / Home Medications
Allergy/AdvReac Type Severity Reaction Status Date / Time
Sulfa (Sulfonamide Allergy Unknown Verified 02/12/25 08:13
Antibiotics)
tetracycline Allergy Unknown Verified 02/12/25 08:18
�Medication �Instructions �Recorded �Confirmed �Type
cyanocobalamin (vitamin B-12) 1,000 mcg PO DAILY 02/12/25 02/12/25 History
1,000 mcg tablet
diphenhydramine 25 2 tab PO HS 02/12/25 02/12/25 History
mg-acetaminophen 500 mg tablet
(Acetaminophen PM)
finasteride 5 mg tablet 5 mg PO DAILY 02/12/25 02/12/25 History
hydrochlorothiazide 25 mg tablet 25 mg PO DAILY 02/12/25 02/12/25 History
lisinopril 40 mg tablet 40 mg PO DAILY 02/12/25 02/12/25 History
meloxicam 15 mg tablet 15 mg PO DAILY 02/12/25 02/12/25 History
nortriptyline 10 mg capsule 10 mg PO HS 02/12/25 02/12/25 History
nortriptyline 10 mg capsule 10 mg PO HSPRN PRN sleep 02/12/25 02/12/25 History
primidone 50 mg tablet 50 mg PO HS 02/12/25 02/12/25 History
primidone 50 mg tablet 100 mg PO DAILY 02/12/25 02/12/25 History
tamsulosin 0.4 mg capsule (Flomax) 0.8 mg PO QPM 02/12/25 02/12/25 History
Review of Systems
-
All other systems: Negative unless noted
Physical Exam
Vital Signs
Vital Signs
Temp Pulse Resp BP Pulse Ox
97.6 F 80 16 89/46 92
02/13/25 07:39 02/13/25 06:35 02/13/25 06:35 02/13/25 06:35 02/13/25 06:35
Lab Results
WBC 41.2 10^3/uL (4.8-10.8) H* 02/13/25 03:09
RBC 4.31 10^6/uL (4.70-6.10) L 02/13/25 03:09
Hgb 13.6 g/dL (13.0-18.0) 02/13/25 03:09
Hct 38.6 % (39.0-52.0) L 02/13/25 03:09
Plt Count 139 10^3/uL (130-400) D 02/13/25 03:09
eGFR 49.56 02/13/25 03:09
Albumin 3.1 g/dl (3.5-5.0) L 02/13/25 03:09
Physical Exam
General: Awake, Alert, Oriented, AOx3 and No Distress
HEENT: EOMI, Anicteric, Conjunctivae Clear and Facial Symmetry
Respiratory: Clear, Normal Excursion and Nonlabored Respirations
Cardiac: S1/S2 and Regular Rate/Rhythm
Breast: Deferred by me
Abdomen: Soft and Nontender
Musculoskeletal: No Cyanosis and No Edema
Skin: No Rash
Neuro: Nonfocal/Grossly Intact and Other (hand tremor)
Psych: Mood/afflect pleasant, Insight/judgement good and Appropriate
Data Reviewed
-
Labs: Labs Reviewed by me and Discussed with Patient
Assessment/Plan
-
IMP:
Septic shock
Severe sepsis with lactic acidosis.
GN bacteremia
Right hydronephrosis with obstructing distal ureteral stone s/p cysto, stone manipulation, stent placement on 02/[address] Coleman
Acute kidney injury.
Metabolic acidosis
Hypocalcemia
History of prostatic hypertrophy with large enlarged prostate
essential hypertension
History of insomnia
essential tremor
History of CVA
Plan:
a/w sepsis from right renal colic
JOSÉ-mild, highly suspect from prerenal in setting of sepsis
UA-4+bld but 0-2rbc, check CK, right hydro noted on CT s/p U stent on 02/12
avoid nephrotoxins and NSAIDs(on Meloxicam on home list)
would cont supportive care with IVF , non oliguric with puga
Met acidosis likely from L acid, await repeat labs
cotn bicarb IVF adjusted this am
cont pressors to keep MAP>65
hypocalcemia-corrected low at 8.3, s/p Iv johnie rider, check vit D level and I johnie in am
abx per primary
d/w pt and nursing
--- NOTE | 2025-02-13 11:14 | W.PN.URO.CBU ---
Today's Communication / Plan
-
continie present gu care
Assessment / Plan
-
rt stone with sepsis syndrome stented
Diagnosis
-
Date of Service: February 13, 2025
-
Patient Diagnosis:
Post Op Day:
Patient Diagnosis:rt ureteral stone in pt rt renal obstruction ans sepsis last week fhas vivien associate uti
Post Op Day:
Subjective
-
chills rigors
Objective
-
Vital Signs
Temp Pulse Resp BP Pulse Ox
97.6 F 80 16 89/46 92
02/13/25 07:39 02/13/25 06:35 02/13/25 06:35 02/13/25 06:35 02/13/25 06:35
Intake and Output
02/12/25 02/13/25 02/14/25
06:59 06:59 06:59
Intake Total 4943.1 / 5090.6 825.0 / 825.0
Output Total 840 / 840
Balance 4103.1 / 4250.6 825.0 / 825.0
Intake:
Oral fluids 720 / 720
IV fluids (Total) 2094.1 / 2241.6 715.0 / 715.0
Levophed 169.1 / 191.6 90.0 / 90.0
Nss 1,000 ml @ 150 mls/hr IV . 1800 / 1800
Q6H40M SARA Rx#:[id number]
Sterile Water For Injection 125 / 250 625 / 625
1000 ml 1,000 ml @ 125 mls/hr
IV .Q9H12M SARA with Sodium
Bicarbonate 150 Meq Rx#:
[id number]
IV piggybacks 2128 / 2128 110 / 110
Output:
Urine, Gordon 840 / 840
Other:
Number of approximated MODERATE 1
amounts of urine
Laboratory Results
02/13/25 03:09
Review of Systems
-
Constitutional: Fever, Night Sweats and Chills
: Difficulty Voiding
Physical Exam
-
General - well developed, well nourished, no acute distress
Chest - clear bilaterally improved but toxic
Abdomen - soft, non-tender, positive bowel sounds, no CVAT, no incisional pain or distention
Genitalia - normal
Rectal - normal
Skin - warm & dry with no rash
Neuro - AOx3, no motor deficits
Extremities - no clubbing, no cyanosis, no edema
Incision - clean, dry
Dressing - clean, dry, intact
Counseling
-
no changes
Care Review
Data Reviewed
Discussed with: Hospitalist and Nursing
--- NOTE | 2025-02-13 13:38 | PTCARENOTE ---
Levophed weaned off. OOB in chair x 4 hrs. Good urine output via puga. Loose stools x 2. Good appetite. All other assessments unchanged.
[2025-02-13 13:43] LABS: Blood Urea Nitrogen 35 mg/dl (9-20); Calcium 7.1 mg/dl (8.4-10.2); Carbon Dioxide 23 mmol/L (22-30); Chloride 105 mmol/L (98-107); Estimated Creatinine Clearance 59 ml/min; Glucose 109 mg/dl (70-99); Potassium 3.7 mmol/L (3.5-5.1); Sodium 138 mmol/L (135-145); eGFR 59.63
[2025-02-13] MEDS: NOVOLOG FLEXPEN-LOW RESISTANCE SC ×2 (13:45→17:00)
[2025-02-13] MEDS: SODIUM BICARBONATE IV (15:33)
--- NOTE | 2025-02-13 15:43 | W.PN.UPDATE ---
Update Note
Progress Note Update
Off vasopressors for the last several hours.
He was able to ambulate around the vel[place] without difficulties
Does not appear toxic
Will transfer to [facility].
Critical care team will sign off
[2025-02-13] MEDS: FLOMAX 0.8 MG PO (17:02)
[2025-02-13 17:09] LABS: Glucose - Point of Care 147 mg/dl (70-99)
--- NOTE | 2025-02-13 17:45 | W.PN.ID1 ---
Date of Service
Date of Service: February 13, 2025
Today's Communication
pharm D, Microbiology
Assessment / Plan
1. Patient personally evaluated and examined by me in ICU where he is awake and conversant and able to provide good information about his symptoms
2. Nephrolithiasis with obstruction relieved by stent placement now POD#1
3. Precautionary empiric antibiotic provided pending final Proteus species culture results in setting of profound leukocytosis WBC 41.2 with PMN 79% with 11% Bandemia
4. Patient placed on Cefepime /one dose Tobramycin in setting of hypotension on Levophed
5. Follow up culture results to continue to provide targeted antibiotic dosing
Thank you for Infectious Disease Consultation.
The ID team will continue to follow with you.
Please callus with any questions or concerns
Chief Complaint
-: Leukocytosis, Clinical Sepsis and UTI (POD#1 urology surgery with stent placement for obstructed left ureter)
Subjective / Review of Systems
Review of Systems: No Fever, No Chills, No Headache, No Pharyngitis, No Stiff Neck, No Swollen Lymph Nodes, No Cough, No Sputum Production, No Chest Pain, No Palpitations, No Abdominal Pain, No Nausea, No Vomiting, No Diarrhea, No Dysuria and No
Skin Rash (flank pain not severe per patient )
Vital Signs / Physical Exam
Vital Signs
Vital Signs
Temp Pulse Resp BP Pulse Ox
98.2 F 93 28 103/63 84
02/13/25 15:39 02/13/25 17:00 02/13/25 15:53 02/13/25 15:53 02/13/25 09:32
Physical Exam
Constitutional: No Acute Distress, Well Developed, Comfortable, Acutely Ill, Toxic and Obese
Head: Normocephalic
Eyes: Pupils Equal, Pupils Round, No Conjunctival Hemorrhage and Sclera Anicteric
Oropharyngeal: Benign
Cardiovascular: Regular Rate
Pulmonary: Clear and Non Labored
Gastrointestinal: Soft, Non Tender, Non Distended and Decreased Bowel Sounds (central adiposity)
Genito-Urinary: Gordon, CVA Tenderness and Clear Urine
Skin: Warm and Dry
Wound: None
Neurological: Awake, Alert, Oriented, AO x 3 and No Motor Deficits
Psychological: Calm (conversant , cooperative ,interactive , denies any pain or discomfort ?)
Objective Data
Lab Data
Lab Results
02/13/25 03:09
02/13/25 12:04
Estimated Creat Clear 59 ml/min 02/13/25 12:04
Lactic Acid 3.1 mmol/L (0.7-2.0) H 02/13/25 12:04
Total Bilirubin 0.5 mg/dl (0.2-1.3) 02/13/25 03:09
AST 30 U/L (17-59) 02/13/25 03:09
ALT < 30 U/L (0-50) 02/13/25 03:09
Alkaline Phosphatase 60 U/L (38-126) 02/13/25 03:09
Most recent labs reviewed.
Microbiology: Report Reviewed (discussed with both microbiology and Pharm D and discussed antibiogram as well as appropriate agents for Proteus in septic patient )
Micro Results:
02/12/25 09:35 Urine Culture - Preliminary
Urine Proteus species
02/12/25 09:10 Blood Culture - Preliminary
Blood/Venous Proteus species
Gram Stain - Final
02/12/25 09:35 Blood Culture - Preliminary
Blood/Venous Positive culture in progress
Gram Stain - Final
CT Scan: Report Reviewed
Care Review
Plan reviewed with: Nurse (hypotension status , vital signs, ), Laboratory (pharm D antibiotic) and Other (Pharm D antibiotic for Proteus species)
Total Time Spent with Patient (in minutes): 55
[2025-02-13] MEDS: LR 1000 IV (18:45)
[2025-02-13] MEDS: TYLENOL 650 MG PO (20:40)
[2025-02-13] MEDS: PAMELOR 10 MG PO (20:41)
[2025-02-13] MEDS: MYSOLINE 50 MG PO (20:41)
[2025-02-13] MEDS: MELATONIN 5 MG PO (20:41)
--- NOTE | 2025-02-13 23:00 | PTCARENOTE ---
Received patient via wheelchair accompanied by JEWEL BEARING DRILLER, patient ambulated to bed without difficulty. Oriented to new room and call ritter, call ritter within reach, VSS, care ongoing.
[2025-02-14] MEDS: STERILE WATER FOR INJECTION 10 ML IV ×4 (01:54→20:19)
[2025-02-14] MEDS: MAXIPIME 1000 MG IV ×4 (01:54→20:19)
[2025-02-14 06:12] LABS: Vitamin D, 25-OH*** 13.5 ng/mL (30-80)
[2025-02-14 07:00] VITALS: BP 136/66
[2025-02-14 07:09] LABS: Hematocrit 34.7 % (39.0-52.0); Hemoglobin 12.5 g/dL (13.0-18.0); Mean Corp Hgb Conc. 36.0 g/dL (33.0-37.0); Mean Corpuscular Volume 86.5 fL (80.0-94.0); Platelet Count 117 10^3/uL (130-400); Red Cell Dist. Width 13.4 % (11.5-14.5)
[2025-02-14] MEDS: HEPARIN 5000 UNITS SC ×3 (07:50→22:32)
[2025-02-14] MEDS: PROSCAR 5 MG PO (07:50)
[2025-02-14] MEDS: MYSOLINE 100 MG PO (07:53)
[2025-02-14 08:12] LABS: Glucose - Point of Care 96 mg/dl (70-99)
[2025-02-14] MEDS: NOVOLOG FLEXPEN-LOW RESISTANCE SC ×2 (08:18→17:06)
[2025-02-14] MEDS: TYLENOL 650 MG PO (08:21)
[2025-02-14 08:27] LABS: Blood Urea Nitrogen 31 mg/dl (9-20); Calcium 7.2 mg/dl (8.4-10.2); Carbon Dioxide 23 mmol/L (22-30); Chloride 110 mmol/L (98-107); Estimated Creatinine Clearance 71 ml/min; Glucose 102 mg/dl (70-99); Potassium 3.3 mmol/L (3.5-5.1); Sodium 139 mmol/L (135-145); eGFR > 60.00
--- NOTE | 2025-02-14 09:02 | W.PN.HOSP.TC ---
Today's Communication/Plan
-
c/w Tylenol, give one dose Toradol to help with fever and rigors.
Repeat blood culture 02/14
Replace K
C/w Cefepime , can change to Ancef ( ID to decide)
Vitamin D replacement
Assessment / Plan
Assessment / Plan
Physical Exam
General: No respiratory distress.
HEENT: no deformities.
Pulmonary: No wheezes or rales. Limited.
Cardiac: S1/S2 and Regular Rhythm. no Tachycardia.
GI: Soft, obese, Normal Bowel Sounds.
Genito-urinary: Clear Urine and Other (urinary catheter)
Musculoskeletal: No Edema
Neuro: Awake, Alert, Oriented and AO x 3. He followed commands. No tremor.
Psych: calm.
Assessment and plan
#Septic shock
Bacteremia
Severe sepsis with lactic acidosis.
He feels tired. Has fever and chills this morning
c/w Tylenol, give one dose Toradol to help with fever and rigors.
No pain in right flank
Off pressure support, stopped IVF
Repeat blood culture 02/14
Daily weight
WBC is coming down
Empiric broad-spectrum antibiotic including cefepime. Stopped vancomycin
Pain control with Tylenol, IV Dilaudid
Appreciate ID, ICU doctor and urology help
# Right hydronephrosis with obstructing distal ureteral stone s/p cysto, stone manipulation, stent placement on 02/[address] Coleman
Appreciate help
c/w Tylenol, give one dose Toradol to help with fever and rigors.
# Acute kidney injury.
Metabolic acidosis
Continue Gordon catheter, status post right ureteral stent
Improved with IVF
# Hypocalcemia
# History of prostatic hypertrophy with large enlarged prostate
Continue home medication. Definitive treatment with outpatient urologist Dr Redd ( [facility]) after treating obstructive issue and infection.
# essential hypertension, held hydrochlorothiazide and lisinopril while hypotension and renal insufficiency. Can resume HCTZ today
# Hypokalemia, replace
# History of insomnia & essential tremor
# Vitamin D deficiency. Will give a dose of vitamin D
# History of CVA
# Obesity, BMI 31
Total time spent to see the patient, examine the patient, review data and lab results, discuss treatment plan with patient, nursing staff around 55 minutes
Anticipated Discharge: > 48 hours
Subjective/Interval History
-
Date of Service: February 14, 2025
Has chills this morning with fever
No chest pain
No flank pain
Objective Data
-
Labs:
Laboratory Results
02/14/25 02/14/25 02/14/25
05:14 05:15 06:23
WBC 26.4 H
Hgb 12.5 L
Hct 34.7 L
Plt Count 117 L
Sodium 139 Cancelled
Potassium 3.3 L Cancelled
Chloride 110 H Cancelled
Carbon Dioxide 23 Cancelled
BUN 31 H Cancelled
Creatinine 1.0 Cancelled
Glucose 102 H Cancelled
Calcium 7.2 L Cancelled
Vital Signs:
Vital Signs
Temp Pulse Resp BP Pulse Ox
100.5 F H 85 18 136/66 93
02/14/25 08:27 02/14/25 07:00 02/14/25 07:00 02/14/25 07:00 02/14/25 07:00
I&O
02/13/25 02/14/25 02/15/25
06:59 06:59 06:59
Intake Total 4943.1 / 5090.6 2252.5 / 2252.5
Output Total 840 / 840 2925 / 2925
Balance 4103.1 / 4250.6 -672.5 / -672.5
[2025-02-14] MEDS: TORADOL 15 MG IV (09:12)
[2025-02-14] MEDS: KCL 270 MEQ IV (09:12)
[2025-02-14] MEDS: DRISDOL (VITAMIN D2) 50000 UNITS PO (10:20)
[2025-02-14 11:28] LABS: Glucose - Point of Care 198 mg/dl (70-99)
[2025-02-14] MEDS: NOVOLOG FLEXPEN-LOW RESISTANCE 1 UNITS SC (12:20)
--- NOTE | 2025-02-14 12:20 | W.PN.URO.CBU ---
Today's Communication / Plan
-
no gu chnanges
Assessment / Plan
-
rt stone with sepsis syndrome stented mwbc trending fdown improving with his bactereia no sv-hanges yet in care targeted iv abs as cx identies organism
Diagnosis
-
Date of Service: February 14, 2025
-
Patient Diagnosis:
Post Op Day:
Patient Diagnosis:
Post Op Day:
Patient Diagnosis:rt ureteral stone in pt rt renal obstruction ans sepsis last week fhas puga associate uti
Post Op Day:
Subjective
-
fever lst pm
Objective
-
Vital Signs
Temp Pulse Resp BP Pulse Ox
100.5 F H 85 18 136/66 93
02/14/25 08:27 02/14/25 07:00 02/14/25 07:00 02/14/25 07:00 02/14/25 07:00
Intake and Output
02/13/25 02/14/25 02/15/25
06:59 06:59 06:59
Intake Total 4943.1 / 5090.6 2252.5 / 2252.5
Output Total 840 / 840 2925 / 2925
Balance 4103.1 / 4250.6 -672.5 / -672.5
Intake:
Oral fluids 720 / 720 600 / 600
IV fluids (Total) 2094.1 / 2241.6 1542.5 / 1542.5
Levophed 169.1 / 191.6 97.5 / 97.5
Lr 1,000 ml @ 80 mls/hr IV . 320 / 320
[id number] SARA Rx#:[id number]
Nss 1,000 ml @ 150 mls/hr IV . 1800 / 1800
Q6H40M SARA Rx#:[id number]
Sterile Water For Injection 125 / 250 1125 / 1125
1000 ml 1,000 ml @ 125 mls/hr
IV .Q9H12M SARA with Sodium
Bicarbonate 150 Meq Rx#:
[id number]
IV piggybacks 2128 110 / 110
Output:
Urine, Puga 840 / 840 1825 / 1825
Urine, Voided 1100 / 1100
Other:
Number of approximated MODERATE 1
amounts of urine
Laboratory Results
02/14/25 05:14
02/14/25 06:23
Review of Systems
-
Constitutional: Fever and Night Sweats
: Difficulty Voiding
Physical Exam
-
General - well developed, well nourished, no acute distress
Chest - clear bilaterally
Abdomen - soft, non-tender, positive bowel sounds, no CVAT, no incisional pain or distention
Genitalia - normal
Rectal - normal
Skin - warm & dry with no rash
Neuro - AOx3, no motor deficits
Extremities - no clubbing, no cyanosis, no edema
Incision - clean, dry
Dressing - clean, dry, intact
Counseling
-
no gu changes
Care Review
Data Reviewed
Discussed with: Nursing
--- NOTE | 2025-02-14 12:47 | W.PN.NEPH.PH ---
Today's Communication / Plan
-
follow labs, replace k
Assessment/Plan
-
IMP:
Septic shock
Severe sepsis with lactic acidosis.
GN bacteremia
Right hydronephrosis with obstructing distal ureteral stone s/p cysto, stone manipulation, stent placement on 02/[address] Coleman
Acute kidney injury.
Metabolic acidosis
Hypocalcemia
History of prostatic hypertrophy with large enlarged prostate
essential hypertension
History of insomnia
essential tremor
History of CVA
Plan:
a/w sepsis from right renal colic
JOSÉ-mild, highly suspect from prerenal in setting of sepsis
UA-4+bld but 0-2rbc, right hydro noted on CT s/p U stent on 02/12
avoid nephrotoxins and NSAIDs(on Meloxicam on home list)
non oliguric with puga
Met acidosis resolved
Bp stable off IVF
replace k
hypocalcemia-improving, vit D def noted-D2 started
abx per primary
d/w pt, family at bedside and nursing
will s/o, call wiht ?s
-
-
Date of Service: February 14, 2025
CC / HPI / ROS
-
Chief Complaint:
JOSÉ, met acidosis
History of Present Illness:
cr improved to 1
met acidosis is better at 23
k llow 3.3
febrile this am
Review of Systems:
no cp or sob
no n/v
non oliguric with puga
Labs
-
Labs:
WBC 26.4 10^3/uL (4.8-10.8) H 02/14/25 05:14
RBC 4.01 10^6/uL (4.70-6.10) L 02/14/25 05:14
Hgb 12.5 g/dL (13.0-18.0) L 02/14/25 05:14
Hct 34.7 % (39.0-52.0) L 02/14/25 05:14
Plt Count 117 10^3/uL (130-400) L 02/14/25 05:14
Sodium Cancelled 02/14/25 06:23
Potassium Cancelled 02/14/25 06:23
Chloride Cancelled 02/14/25 06:23
Carbon Dioxide Cancelled 02/14/25 06:23
BUN Cancelled 02/14/25 06:23
Creatinine Cancelled 02/14/25 06:23
eGFR Cancelled 02/14/25 06:23
Glucose Cancelled 02/14/25 06:23
Calcium Cancelled 02/14/25 06:23
Albumin 3.1 g/dl (3.5-5.0) L 02/13/25 03:09
Physical Exam
-
Vital Signs:
Vital Signs
Temp Pulse Resp BP Pulse Ox
100.5 F H 85 18 136/66 93
02/14/25 08:27 02/14/25 07:00 02/14/25 07:00 02/14/25 07:00 02/14/25 07:00
Cardiovascular:: Regular rate and rhythm
Respiratory:: Bilateral: CTA
Lung Excursion:: Normal
Abdomen:: Nontender and Soft
Extremity Edema:: None: Bilateral:
Puga Catheter: Yes
[2025-02-14 15:00] VITALS: BP 142/75
[2025-02-14 16:41] LABS: Glucose - Point of Care 139 mg/dl (70-99)
[2025-02-14] MEDS: FLOMAX 0.8 MG PO (17:06)
--- NOTE | 2025-02-14 19:46 | W.PN.ID1 ---
Date of Service
Date of Service: February 14, 2025
Today's Communication
nurse
Assessment / Plan
1. Patient personally evaluated and examined by me and is awake and conversant
2. Nephrolithiasis with obstruction relieved by stent placement now POD#2
3. Precautionary empiric antibiotic provided pending final Proteus species culture results in setting of profound leukocytosis slightly improved
4. Patient placed on Cefepime /one dose Tobramycin
5. Follow up culture results to continue to provide targeted antibiotic dosing
Thank you for Infectious Disease Consultation.
The ID team will continue to follow with you.
Please callus with any questions or concerns
Chief Complaint
-: Leukocytosis (improved and afebrile this AM) and UTI (POD#1 urology surgery with stent placement for obstructed left ureter)
Subjective / Review of Systems
Review of Systems: No Fever, No Chills, No Headache, No Pharyngitis, No Stiff Neck, No Swollen Lymph Nodes, No Cough, No Sputum Production, No Chest Pain, No Palpitations, No Abdominal Pain, No Nausea, No Vomiting, No Diarrhea, No Dysuria, No Joint
Pain and No Skin Rash
Vital Signs / Physical Exam
Vital Signs
Vital Signs
Temp Pulse Resp BP Pulse Ox
98.4 F 83 16 142/75 94
02/14/25 15:00 02/14/25 15:00 02/14/25 15:00 02/14/25 15:00 02/14/25 15:00
Physical Exam
Constitutional: No Acute Distress, Well Developed, Acutely Ill and Obese
Head: Normocephalic
Eyes: Pupils Equal, Pupils Round, No Conjunctival Hemorrhage and Sclera Anicteric
Oropharyngeal: Benign
Cardiovascular: Regular Rate and Peripheral Edema
Pulmonary: Clear and Non Labored
Gastrointestinal: Non Tender, Non Distended and Decreased Bowel Sounds
Genito-Urinary: Gordon and Clear Urine
Extremities: Edema and Pulses
Skin: Warm and Dry
Wound: None
Neurological: Awake, Alert and Oriented (gait not observed)
Psychological: Confused
Objective Data
Lab Data
Lab Results
02/14/25 05:14
02/14/25 06:23
Estimated Creat Clear Cancelled 02/14/25 06:23
Lactic Acid 3.1 mmol/L (0.7-2.0) H 02/13/25 12:04
Total Bilirubin 0.5 mg/dl (0.2-1.3) 02/13/25 03:09
AST 30 U/L (17-59) 02/13/25 03:09
ALT < 30 U/L (0-50) 02/13/25 03:09
Alkaline Phosphatase 60 U/L (38-126) 02/13/25 03:09
Most recent labs reviewed.
Microbiology: Report Reviewed
Micro Results:
02/12/25 09:35 Blood Culture - Preliminary
Blood/Venous Positive culture in progress
Gram Stain - Final
02/12/25 09:10 Blood Culture - Preliminary
Blood/Venous Proteus species
Gram Stain - Final
02/12/25 09:35 Urine Culture - Final
Urine Proteus mirabilis
02/14/25 07:57 Blood Culture - Pending
Blood/Venous
Care Review
Plan reviewed with: Nurse
Total Time Spent with Patient (in minutes): 35
[2025-02-14 21:56] LABS: Glucose - Point of Care 129 mg/dl (70-99)
[2025-02-14] MEDS: MYSOLINE 50 MG PO (22:31)
[2025-02-14] MEDS: PAMELOR 10 MG PO (22:31)
[2025-02-14] MEDS: MELATONIN 5 MG PO (22:32)
[2025-02-14 23:24] VITALS: BP 148/73
[2025-02-15] MEDS: STERILE WATER FOR INJECTION 10 ML IV (03:00)
[2025-02-15] MEDS: MAXIPIME 1000 MG IV (03:00)
[2025-02-15 08:00] VITALS: BP 149/82
[2025-02-15 08:12] LABS: Glucose - Point of Care 137 mg/dl (70-99)
--- NOTE | 2025-02-15 08:31 | W.PN.HOSP.TC ---
Addendum entered and electronically signed by Bong Carter MD 02/15/25 12:38:
CAUTI is a valid diagnosis .
Original Note:
Today's Communication/Plan
-
Await blood work to make replacements if needed
Treat acute diarrhea, if C Diff negative, will give Imodium
Change IV ABx to Ancef
Assessment / Plan
Assessment / Plan
Physical Exam
General: No respiratory distress.
HEENT: no deformities.
Pulmonary: No wheezes or rales. Limited.
Cardiac: S1/S2 and Regular Rhythm. no Tachycardia.
GI: Soft, obese, Normal Bowel Sounds.
Genito-urinary: Clear Urine and Other (urinary catheter)
Musculoskeletal: No Edema
Neuro: Awake, Alert, Oriented and AO x 3. He followed commands. No tremor.
Psych: calm.
Assessment and plan
# Acute diarrhea
Frequent
with odor
rule out infectious cause as C Diff
Empiric oral vancomycin & Flagyl until C Diff resulted. No abdominal pain.
#Proteus mirabilis Septic shock
Bacteremia
Severe sepsis with lactic acidosis.
He feels better, no pain or fever or chills tired.
No pain in right flank
Off pressure support, stopped IVF
Repeat blood culture 02/14 is pending.
Daily weight
WBC is coming down
s/p Empiric broad-spectrum antibiotic including cefepime, vancomycin changed to Ancef 2 gm Q 8
Pain control with Tylenol, IV Dilaudid
Appreciate ID, ICU doctor and urology help
# Right hydronephrosis with obstructing distal ureteral stone s/p cysto, stone manipulation, stent placement on 02/[address] Coleman
Appreciate help
c/w Tylenol, give one dose Toradol to help with fever and rigors.
# Acute kidney injury.
Metabolic acidosis
Continue Gordon catheter, status post right ureteral stent
Improved with IVF
# Hypocalcemia
# History of prostatic hypertrophy with large enlarged prostate
Continue home medication. Definitive treatment with outpatient urologist Dr Redd ( [facility]) after treating obstructive issue and infection.
# essential hypertension, held hydrochlorothiazide and lisinopril while hypotension and renal insufficiency. Can resume HCTZ today
# Hypokalemia, replace
# History of insomnia & essential tremor
# Vitamin D deficiency. Will give a dose of vitamin D
# History of CVA
# Obesity, BMI 31
Total time spent to see the patient, examine the patient, review data and lab results, discuss treatment plan with patient, nursing staff around 55 minutes
Anticipated Discharge: > 48 hours
Subjective/Interval History
-
Date of Service: February 15, 2025
He complains of diarrhea
No fever
No abdominal pain
Objective Data
-
Labs:
Laboratory Results
02/15/25
08:18
WBC Pending
Hgb Pending
Hct Pending
Plt Count Pending
Sodium Pending
Potassium Pending
Chloride Pending
Carbon Dioxide Pending
BUN Pending
Creatinine Pending
Glucose Pending
Calcium Pending
Vital Signs:
Vital Signs
Temp Pulse Resp BP Pulse Ox
99.0 F 89 20 148/73 96
02/14/25 23:24 02/14/25 23:24 02/14/25 23:24 02/14/25 23:24 02/14/25 23:24
I&O
02/14/25 02/15/25 02/16/25
06:59 06:59 06:59
Intake Total 2252.5 / 2252.5 600 / 600
Output Total 2925 / 2925 2250 / 2250
Balance -672.5 / -672.5 -1650 / -1650
[2025-02-15] MEDS: PROSCAR 5 MG PO (08:38)
[2025-02-15] MEDS: FLAGYL 500 MG PO (08:39)
[2025-02-15] MEDS: MYSOLINE 100 MG PO (08:39)
[2025-02-15] MEDS: ANCEF 10 IV ×2 (08:40→15:09)
[2025-02-15] MEDS: NOVOLOG FLEXPEN-LOW RESISTANCE SC ×2 (08:47→17:20)
[2025-02-15] MEDS: HEPARIN 5000 UNITS SC ×2 (08:49→15:11)
[2025-02-15 08:53] LABS: Hematocrit 38.0 % (39.0-52.0); Hemoglobin 14.0 g/dL (13.0-18.0); Mean Corp Hgb Conc. 36.8 g/dL (33.0-37.0); Mean Corpuscular Volume 85.8 fL (80.0-94.0); Platelet Count 147 10^3/uL (130-400); Red Cell Dist. Width 13.4 % (11.5-14.5)
[2025-02-15 10:09] LABS: Blood Urea Nitrogen 19 mg/dl (9-20); Calcium 7.6 mg/dl (8.4-10.2); Carbon Dioxide 25 mmol/L (22-30); Chloride 109 mmol/L (98-107); Estimated Creatinine Clearance 89 ml/min; Glucose 133 mg/dl (70-99); Potassium 3.4 mmol/L (3.5-5.1); Sodium 141 mmol/L (135-145); eGFR > 60.00
--- NOTE | 2025-02-15 11:11 | CM ---
Chart reviewed. Care ongoing at this time.
Cont IV abx
CM will cont to follow for needs
--- NOTE | 2025-02-15 11:32 | PN.CDI ---
CDI
- -
CDI:
Physician Documentation Request
Admit Date: 02/12/25 12:44
Dear Doctor Emma,
urology consultation states 'Urosepsis due to a right ureteral stone with obstruction in a patient with retention, indwelling Gordon catheter, catheter-associated UTI'
Hospitalist note states ' Proteus mirabilis septic shock......right hydronephrosis with obstructing distal ureteral stone s/p cysto, stone manipulation, stent placement'
Please indicate in your progress notes if you are in agreement that the above diagnosis is valid for this patient:
____ - CAUTI is a valid diagnosis (Please include it in your progress notes)
____ - CAUTI is not a valid diagnosis for this patient
____ - Other
Use of terms such as suspected, likely, concern for, or probable are acceptable for a diagnosis that is being evaluated, monitored or treated as if it exists and can be coded in the inpatient setting, when documented at the time of discharge.
Thank you,
Meghan Weinberg RN, BSN
CDI Specialist
tiger text
Please use your independent medical judgment in providing your response.
[2025-02-15 12:01] LABS: Glucose - Point of Care 167 mg/dl (70-99)
--- NOTE | 2025-02-15 12:26 | W.PN.URO.CBU ---
Today's Communication / Plan
-
home wt vivien
Assessment / Plan
-
rt stone with sepsis clinically improved will watch cbc but getting targeted iv abs
Diagnosis
-
Date of Service: February 15, 2025
-
Patient Diagnosis:
Post Op Day:
Patient Diagnosis:
Post Op Day:
Patient Diagnosis:
Post Op Day:
Patient Diagnosis:rt ureteral stone in pt rt renal obstruction ans sepsis last week fhas puga associate uti
Post Op Day:
Subjective
-
feeling much better
Objective
-
Vital Signs
Temp Pulse Resp BP Pulse Ox
98.0 F 92 18 149/82 95
02/15/25 08:00 02/15/25 08:00 02/15/25 08:00 02/15/25 08:00 02/15/25 08:00
Intake and Output
02/14/25 02/15/25 02/16/25
06:59 06:59 06:59
Intake Total 2252.5 / 2252.5 600 / 600
Output Total 2925 / 2925 2250 / 2250
Balance -672.5 / -672.5 -1650 / -1650
Intake:
Oral fluids 600 / 600 600 / 600
IV fluids (Total) 1542.5 / 1542.5
Levophed 97.5 / 97.5
Lr 1,000 ml @ 80 mls/hr IV . 320 / 320
[id number] SARA Rx#:[id number]
Sterile Water For Injection 1125 / 1125
1000 ml 1,000 ml @ 125 mls/hr
IV .Q9H12M SARA with Sodium
Bicarbonate 150 Meq Rx#:
[id number]
IV piggybacks 110 / 110
Output:
Urine, Puga 1825 / 1825 1150 / 1150
Urine, Voided 1100 / 1100 1100 / 1100
Other:
Number of approximated MODERATE 1
amounts of urine
Laboratory Results
02/15/25 08:18
02/15/25 08:18
Review of Systems
-
: Difficulty Voiding
Physical Exam
-
General - well developed, well nourished, no acute distress
Chest - clear bilaterally
Abdomen - soft, non-tender, positive bowel sounds, no CVAT, no incisional pain or distention
Genitalia - normal
Rectal - normal
Skin - warm & dry with no rash
Neuro - AOx3, no motor deficits
Extremities - no clubbing, no cyanosis, no edema
Incision - clean, dry
Dressing - clean, dry, intact
Counseling
-
plan per hospitalist
Care Review
Data Reviewed
Discussed with: Nursing
[2025-02-15] MEDS: NOVOLOG FLEXPEN-LOW RESISTANCE 1 UNITS SC (12:47)
--- NOTE | 2025-02-15 13:46 | W.PN.ID1 ---
Date of Service
Date of Service: February 15, 2025
Today's Communication
spoke with nurse
Assessment / Plan
1. Patient personally evaluated and examined by me and is awake and conversant
2. Nephrolithiasis with obstruction relieved by stent placement now POD#3
3. Precautionary targeted antibiotic provided for Proteus species culture results,Cefazolin, with leukocytosis slightly improved patient afebrile
4. Patient with profuse diarrhea with stool study this AM neg for C.diff
5. Follow up culture results pending for test of cure
Thank you for Infectious Disease Consultation.
The ID team will continue to follow with you.
Please callus with any questions or concerns
Chief Complaint
-: Leukocytosis (improved and afebrile this AM), UTI (POD#1 urology surgery with stent placement for obstructed left ureter) and Bacteremia
Subjective / Review of Systems
Review of Systems: No Fever, No Chills, No Headache, No Pharyngitis, No Stiff Neck, No Swollen Lymph Nodes, No Cough, No Sputum Production, No Chest Pain, No Palpitations, Abdominal Pain, No Nausea, No Vomiting, Diarrhea, No Dysuria, No Joint Pain
and No Skin Rash
Vital Signs / Physical Exam
Vital Signs
Vital Signs
Temp Pulse Resp BP Pulse Ox
98.0 F 92 18 149/82 95
02/15/25 08:00 02/15/25 08:00 02/15/25 08:00 02/15/25 08:00 02/15/25 08:00
Physical Exam
Constitutional: No Acute Distress, Well Developed, Comfortable, Acutely Ill, Non-toxic and Obese
Head: Normocephalic
Eyes: Pupils Equal, Pupils Round, No Conjunctival Hemorrhage and Sclera Anicteric
Oropharyngeal: Benign
Pulmonary: Clear, Coarse and Non Labored (decreased breath sounds at both bases)
Gastrointestinal: Soft, Non Tender, Non Distended, Normal Bowel Sounds, No Rebound and No Guarding (central adiposity)
Extremities: Edema (fair ROM)
Skin: Warm and Dry
Wound: None
Neurological: Awake, Alert, Oriented and AO x 3 (gait not observed)
Psychological: Calm (agitated about diarrhea)
Objective Data
Lab Data
Lab Results
02/15/25 08:18
02/15/25 08:18
Estimated Creat Clear 89 ml/min 02/15/25 08:18
Lactic Acid 3.1 mmol/L (0.7-2.0) H 02/13/25 12:04
Total Bilirubin 0.5 mg/dl (0.2-1.3) 02/13/25 03:09
AST 30 U/L (17-59) 02/13/25 03:09
ALT < 30 U/L (0-50) 02/13/25 03:09
Alkaline Phosphatase 60 U/L (38-126) 02/13/25 03:09
Most recent labs reviewed.
Microbiology: Report Reviewed (liquid stool without C diff at this time)
Micro Results:
02/15/25 11:26 C. difficile GDH Antigen & Toxins - Final
Feces/Stool Negative for toxigenic C.difficile
02/12/25 09:35 Blood Culture - Final
Blood/Venous Proteus mirabilis
Gram Stain - Final
02/12/25 09:10 Blood Culture - Final
Blood/Venous Proteus mirabilis
Gram Stain - Final
02/14/25 07:57 Blood Culture - Preliminary
Blood/Venous No Growth in 24 hours- Final report to follow
02/12/25 09:35 Urine Culture - Final
Urine Proteus mirabilis
CT Scan: Report Reviewed
Care Review
Plan reviewed with: Nurse (spoke with nurse this AM)
Total Time Spent with Patient (in minutes): 35
[2025-02-15 16:00] VITALS: BP 154/72
[2025-02-15 17:19] LABS: Glucose - Point of Care 113 mg/dl (70-99)
[2025-02-15] MEDS: FLOMAX 0.8 MG PO (17:22)
[2025-02-15] MEDS: PAMELOR 10 MG PO (20:52)
[2025-02-15] MEDS: MYSOLINE 50 MG PO (20:53)
[2025-02-15] MEDS: KCL 20 MEQ PO (20:53)
[2025-02-15] MEDS: MELATONIN 5 MG PO (20:53)
[2025-02-15 21:47] LABS: Glucose - Point of Care 159 mg/dl (70-99)
[2025-02-15 23:02] VITALS: BP 152/69
[2025-02-16] MEDS: ANCEF 10 IV ×4 (00:03→23:02)
[2025-02-16] MEDS: HEPARIN 5000 UNITS SC ×4 (00:03→23:02)
--- NOTE | 2025-02-16 06:36 | W.PN.URO.CBU ---
Today's Communication / Plan
-
discharge when medically fit WITH CHICAS
f/u with Dr Coleman to plan for surgical removal of right ureteral stone
Assessment / Plan
-
improving proteus urosepsis s/p urgent right ureteral stenting
Diagnosis
-
Date of Service: February 16, 2025
-
Patient Diagnosis: right ureteral stone, sepsis, chronic Chicas
s/p cysto, right ureteral stenting on 02/12/2025
Objective
-
Vital Signs
Temp Pulse Resp BP Pulse Ox
98.4 F 85 18 152/69 95
02/15/25 23:02 02/15/25 23:02 02/15/25 23:02 02/15/25 23:02 02/15/25 23:02
Intake and Output
02/14/25 02/15/25 02/16/25
06:59 06:59 06:59
Intake Total 2252.5 / 2252.5 600 / 600 1300 / 1300
Output Total 2925 / 2925 2250 / 2250 1350 / 1350
Balance -672.5 / -672.5 -1650 / -1650 -50 / -50
Intake:
Oral fluids 600 / 600 600 / 600 1300 / 1300
IV fluids (Total) 1542.5 / 1542.5
Levophed 97.5 / 97.5
Lr 1,000 ml @ 80 mls/hr IV . 320 / 320
[id number] SARA Rx#:[id number]
Sterile Water For Injection 1125 / 1125
1000 ml 1,000 ml @ 125 mls/hr
IV .Q9H12M SARA with Sodium
Bicarbonate 150 Meq Rx#:
[id number]
IV piggybacks 110 / 110
Output:
Urine, Chicas 1825 / 1825 1150 / 1150 1350 / 1350
Urine, Voided 1100 / 1100 1100 / 1100
Other:
Number of approximated MODERATE 1
amounts of urine
Laboratory Results
02/15/25 08:18
02/15/25 08:18
Urine Culture Final 02/14/25-0832
CC: Greater than 100,000 CFU/ML Proteus mirabilis
Organism 1 Proteus mirabilis
1. Proteus mirabilis
M.I.C. RX
--------- ---
Amoxicillin/Potas. Clavulanate <=8/4 S
Ampicillin <=8 S
Ampicillin/Sulbactam <=4/2 S
Aztreonam <=4 S
Cefazolin <=2 S
Ertapenem <=0.5 S
Ciprofloxacin <=0.25 S
Gentamicin <=2 S
Meropenem <=1 S
Nitrofurantoin-Urine Only >64 R
Piperacillin/Tazobactam <=8 S
Tetracycline >8 R
Tobramycin <=2 S
Trimethoprim/Sulfamethoxazole <=2/38 S
Physical Exam
-
General - well developed, well nourished, no acute distress
Chest - clear bilaterally
Abdomen - soft, non-tender, positive bowel sounds, no CVAT, no incisional pain or distention
Genitalia - normal
Rectal - normal
Skin - warm & dry with no rash
Neuro - AOx3, no motor deficits
Extremities - no clubbing, no cyanosis, no edema
Incision - clean, dry
Dressing - clean, dry, intact
[2025-02-16 07:00] VITALS: BP 140/74
[2025-02-16 08:25] LABS: Glucose - Point of Care 123 mg/dl (70-99)
[2025-02-16] MEDS: NOVOLOG FLEXPEN-LOW RESISTANCE SC ×2 (08:33→17:00)
[2025-02-16] MEDS: MYSOLINE 100 MG PO (08:51)
[2025-02-16] MEDS: KCL 20 MEQ PO ×2 (08:51→21:00)
[2025-02-16] MEDS: PROSCAR 5 MG PO (08:51)
--- NOTE | 2025-02-16 09:11 | W.PN.HOSP.TC ---
Today's Communication/Plan
-
ID recommendations for OP antibiotic regimen
Encourage ambulation
CBC & BMP
Assessment / Plan
Assessment / Plan
Physical Exam
General: No respiratory distress.
HEENT: no deformities.
Pulmonary: No wheezes or rales. Limited.
Cardiac: S1/S2 and Regular Rhythm. no Tachycardia.
GI: Soft, obese, Normal Bowel Sounds.
Genito-urinary: Clear Urine and Other (urinary catheter)
Musculoskeletal: No Edema
Neuro: Awake, Alert, Oriented and AO x 3. He followed commands. No tremor.
Psych: calm.
Assessment and plan
# Acute diarrhea
Resolving
Negative C Diff
Changed IV Abx to Ancef
PRN Imodium. No abdominal pain.
#Proteus mirabilis Septic shock
Bacteremia
Severe sepsis with lactic acidosis.
He feels better, no pain or fever or chills tired.
No pain in right flank
Off pressure support, stopped IVF
Repeat blood culture 02/14 is NGTD.
Daily weight
WBC is coming down
s/p Empiric broad-spectrum antibiotic including cefepime, vancomycin changed to Ancef 2 gm Q 8
Pain control with Tylenol, IV Dilaudid
Appreciate ID, ICU doctor and urology help
# Right hydronephrosis with obstructing distal ureteral stone s/p cysto, stone manipulation, stent placement on 02/[address] Coleman
Appreciate help
c/w Tylenol, give one dose Toradol to help with fever and rigors.
# Acute kidney injury.
Metabolic acidosis
Continue Gordon catheter, status post right ureteral stent
Improved with IVF
# Hypocalcemia, replaced.
# History of prostatic hypertrophy with large enlarged prostate
Continue home medication. Definitive treatment with outpatient urologist Dr Redd ( [facility]) after treating obstructive issue and infection.
# essential hypertension, held hydrochlorothiazide and lisinopril while hypotension and renal insufficiency. Can resume HCTZ today
# Hypokalemia, replaced
# History of insomnia & essential tremor
# Vitamin D deficiency. Will give a dose of vitamin D
# History of CVA
# Obesity, BMI 31
Total time spent to see the patient, examine the patient, review data and lab results, discuss treatment plan with patient, nursing staff around 55 minutes
Anticipated Discharge: Within 24 hours
Subjective/Interval History
-
Date of Service: February 16, 2025
He feels better
No fever or chills
Objective Data
-
Vital Signs:
Vital Signs
Temp Pulse Resp BP Pulse Ox
98.6 F 78 18 140/74 96
02/16/25 07:00 02/16/25 07:00 02/16/25 07:00 02/16/25 07:00 02/16/25 07:00
I&O
02/15/25 02/16/25 02/17/25
06:59 06:59 06:59
Intake Total 600 / 600 1300 / 1300
Output Total 2250 / 2250 1350 / 1350
Balance -1650 / -1650 -50 / -50
[2025-02-16 11:09] LABS: Hematocrit 35.2 % (39.0-52.0); Hemoglobin 12.6 g/dL (13.0-18.0); Mean Corp Hgb Conc. 35.8 g/dL (33.0-37.0); Mean Corpuscular Volume 85.2 fL (80.0-94.0); Platelet Count 169 10^3/uL (130-400); Red Cell Dist. Width 13.3 % (11.5-14.5)
[2025-02-16 11:27] LABS: Blood Urea Nitrogen 14 mg/dl (9-20); Calcium 7.2 mg/dl (8.4-10.2); Carbon Dioxide 24 mmol/L (22-30); Chloride 112 mmol/L (98-107); Estimated Creatinine Clearance 119 ml/min; Glucose 156 mg/dl (70-99); Potassium 3.6 mmol/L (3.5-5.1); Sodium 142 mmol/L (135-145); eGFR > 60.00
[2025-02-16 11:58] LABS: Glucose - Point of Care 163 mg/dl (70-99)
[2025-02-16] MEDS: NOVOLOG FLEXPEN-LOW RESISTANCE 1 UNITS SC (12:57)
[2025-02-16 15:00] VITALS: BP 163/86
--- NOTE | 2025-02-16 16:09 | W.PN.ID1 ---
Date of Service
Date of Service: February 16, 2025
Today's Communication
Scrotum US.
Assessment / Plan
# Complicated Proteus UTI with right obstructive uropathy
. s/p cysto, stone manipulation stent 02/12/25
# Proteus bacteremia
# New scrotal edema
# Marked leukocytosis resolved
# s/p septic shock
# Allergy to sulfa/tetracycline
- Ordered srcotal US.
- Elevate scrotum
- Continue cefazolin (d5)
-At time of dc, will transition to po abx.
Chief Complaint
-: UTI (POD#1 urology surgery with stent placement for obstructed left ureter) and Bacteremia
Subjective / Review of Systems
c/o scrotal edema past 2 days. Mild discomfort
Vital Signs / Physical Exam
Vital Signs
Vital Signs
Temp Pulse Resp BP Pulse Ox
98.6 F 78 18 140/74 96
02/16/25 07:00 02/16/25 07:00 02/16/25 07:00 02/16/25 07:00 02/16/25 08:30
Physical Exam
Constitutional: No Acute Distress
Cardiovascular: Regular Rate and S1/S2
Pulmonary: Clear
Gastrointestinal: Soft, Non Tender, Non Distended and Normal Bowel Sounds
Genito-Urinary: Gordon (clear urine) and Other (scrotum 2+ edema, nontender)
Extremities: Negative Edema
Neurological: AO x 3
Objective Data
Lab Data
Lab Results
02/16/25 10:30
02/16/25 10:30
Estimated Creat Clear 119 ml/min 02/16/25 10:30
Lactic Acid 3.1 mmol/L (0.7-2.0) H 02/13/25 12:04
Total Bilirubin 0.5 mg/dl (0.2-1.3) 02/13/25 03:09
AST 30 U/L (17-59) 02/13/25 03:09
ALT < 30 U/L (0-50) 02/13/25 03:09
Alkaline Phosphatase 60 U/L (38-126) 02/13/25 03:09
Most recent labs reviewed.
Micro Results:
02/14/25 07:57 Blood Culture - Preliminary
Blood/Venous No Growth in 48 hours- Final report to follow
02/15/25 11:26 C. difficile GDH Antigen & Toxins - Final
Feces/Stool Negative for toxigenic C.difficile
02/12/25 09:35 Blood Culture - Final
Blood/Venous Proteus mirabilis
Gram Stain - Final
02/12/25 09:10 Blood Culture - Final
Blood/Venous Proteus mirabilis
Gram Stain - Final
02/12/25 09:35 Urine Culture - Final
Urine Proteus mirabilis
Care Review
Plan reviewed with: Physician (Dr. Carter)
[2025-02-16 17:15] LABS: Glucose - Point of Care 115 mg/dl (70-99)
[2025-02-16] MEDS: FLOMAX 0.8 MG PO (18:02)
[2025-02-16] MEDS: MYSOLINE 50 MG PO (21:00)
[2025-02-16 21:49] LABS: Glucose - Point of Care 155 mg/dl (70-99)
[2025-02-16] MEDS: MELATONIN 5 MG PO (23:02)
[2025-02-16] MEDS: PAMELOR 10 MG PO (23:02)
[2025-02-16 23:05] VITALS: BP 138/67
[2025-02-17 07:10] VITALS: BP 162/80
[2025-02-17 07:26] LABS: Glucose - Point of Care 132 mg/dl (70-99)
[2025-02-17] MEDS: NOVOLOG FLEXPEN-LOW RESISTANCE SC ×3 (08:52→16:00)
[2025-02-17] MEDS: MYSOLINE 100 MG PO (08:55)
[2025-02-17] MEDS: KCL 20 MEQ PO (08:56)
[2025-02-17] MEDS: PROSCAR 5 MG PO (08:56)
[2025-02-17] MEDS: ANCEF 10 IV ×3 (08:56→23:59)
[2025-02-17] MEDS: HEPARIN 5000 UNITS SC ×3 (08:56→23:59)
--- NOTE | 2025-02-17 09:01 | W.PN.HOSP.TC ---
Addendum entered and electronically signed by Bong Carter MD 02/17/25 14:04:
Addendum
Scrotal ultrasound consistent with mild edema. No acute findings.
Blood pressure stabilized and started to go up. Will place the patient back on hydrochlorothiazide and lisinopril. DC potassium supplement
End
Original Note:
Today's Communication/Plan
-
c/w IV Abx
Scrotal US
Valtrex for cold sores
Assessment / Plan
Assessment / Plan
Physical Exam
General: No respiratory distress.
HEENT: no deformities.
Pulmonary: No wheezes or rales. Limited.
Cardiac: S1/S2 and Regular Rhythm. no Tachycardia.
GI: Soft, obese, Normal Bowel Sounds.
Genito-urinary: Clear Urine and Other (urinary catheter)
Musculoskeletal: No Edema
Neuro: Awake, Alert, Oriented and AO x 3. He followed commands. No tremor.
Psych: calm.
Assessment and plan
# Acute diarrhea
Resolved
Negative C Diff
Changed IV Abx to Ancef
PRN Imodium. No abdominal pain.
#Proteus mirabilis Septic shock
Bacteremia
Severe sepsis with lactic acidosis/ resolved.
He feels better, no pain or fever or chills tired.
No pain in right flank
Off pressure support, stopped IVF
Repeat blood culture 02/14 is NGTD.
Daily weight
WBC is coming down
s/p Empiric broad-spectrum antibiotic including cefepime, vancomycin changed to Ancef 2 gm Q 8
Pain control with Tylenol, IV Dilaudid
I examined his scrotum today , no swelling or tenderness noted. Patient says it has swelling, ID doctor ordered US. I updated urologist- oncall Dr Lezama about US order.
Appreciate ID, ICU doctor and urology help
# Right hydronephrosis with obstructing distal ureteral stone s/p cysto, stone manipulation, stent placement on 02/[address] Coleman
Appreciate help
c/w Tylenol, give one dose Toradol to help with fever and rigors.
# Herpes simplex Labialis
Will give Valtrex for short course.
# Acute kidney injury/ Metabolic acidosis/ resolved.
Continue Gordon catheter, status post right ureteral stent,plan to dc with Gordon
Improved with IVF
# Hypocalcemia, replaced.
# History of prostatic hypertrophy with large enlarged prostate
Continue home medication. Definitive treatment with outpatient urologist Dr Redd ( [facility]) after treating obstructive issue and infection.
# essential hypertension, held hydrochlorothiazide and lisinopril while hypotension and renal insufficiency. Can resume HCTZ today
# Hypokalemia, replaced
# History of insomnia & essential tremor
# Vitamin D deficiency. s/p dose of vitamin D
# History of CVA
# Obesity, BMI 31
Total time spent to see the patient, examine the patient, review data and lab results, discuss treatment plan with patient, ID doctor, urologist, nursing staff around 55 minutes
Anticipated Discharge: 24 - 48 hours
Subjective/Interval History
-
Date of Service: February 17, 2025
No abdominal pain
No sob
Objective Data
-
Vital Signs:
Vital Signs
Temp Pulse Resp BP Pulse Ox
98.9 F 80 18 162/80 95
02/17/25 07:10 02/17/25 07:10 02/17/25 07:10 02/17/25 07:10 02/17/25 07:10
I&O
02/16/25 02/17/25 02/18/25
06:59 06:59 06:59
Intake Total 1300 / 1300 1250 / 1250
Output Total 1350 / 1350 1750 / 1750
Balance -50 / -50 -500 / -500
[2025-02-17] MEDS: VALTREX 1000 MG PO ×2 (10:17→21:17)
[2025-02-17 11:51] LABS: Glucose - Point of Care 137 mg/dl (70-99)
--- NOTE | 2025-02-17 12:41 | W.PN.URO.CBU ---
Today's Communication / Plan
-
continue Gordon
to be discharge on po abx and finasteride
will return for right ureteroscopy
Assessment / Plan
-
improving proteus urosepsis s/p urgent right ureteral stenting
modest scrotal edema -- related to tract infection
Diagnosis
-
Date of Service: February 17, 2025
-
Post Op Day:
Patient Diagnosis:
right ureteral stone, sepsis, chronic Gordon due to severe prostatomegaly
s/p cysto, right ureteral stenting on 02/12/2025
Subjective
-
some scrotal discomfort
Objective
-
Vital Signs
Temp Pulse Resp BP Pulse Ox
98.9 F 80 18 162/80 95
02/17/25 07:10 02/17/25 07:10 02/17/25 07:10 02/17/25 07:10 02/17/25 07:10
Intake and Output
02/16/25 02/17/25 02/18/25
06:59 06:59 06:59
Intake Total 1300 / 1300 1250 / 1250
Output Total 1350 / 1350 1750 / 1750
Balance -50 / -50 -500 / -500
Intake:
Oral fluids 1300 / 1300 1250 / 1250
Output:
Urine, Gordon 1350 / 1350 300 / 300
Urine, Voided 1450 / 1450
Laboratory Results
02/16/25 10:30
02/16/25 10:30
Physical Exam
-
General - well developed, well nourished, no acute distress
Abdomen - soft, non-tender, no distention
Genitalia - Gordon; scrotum demonstrates mild edema and erythema
Counseling
-
25 minutes discussion with pt -- review of events; pathobiology; anticipated tx for UTI, stone and BPH-retention
Care Review
Data Reviewed
Discussed with: Nursing
Total Time Spent with Patient (in minutes): 27
[2025-02-17 14:30] VITALS: BP 165/77
[2025-02-17] MEDS: ORETIC 25 MG PO (15:00)
[2025-02-17 15:38] LABS: Glucose - Point of Care 130 mg/dl (70-99)
[2025-02-17] MEDS: FLOMAX 0.8 MG PO (18:09)
[2025-02-17 21:00] LABS: Glucose - Point of Care 126 mg/dl (70-99)
[2025-02-17] MEDS: MYSOLINE 50 MG PO (21:17)
[2025-02-17] MEDS: MELATONIN 5 MG PO (22:34)
[2025-02-17] MEDS: PAMELOR 10 MG PO (22:34)
[2025-02-17 22:43] VITALS: BP 151/80
[2025-02-18 07:00] VITALS: BP 172/86
[2025-02-18 07:16] LABS: Hematocrit 38.6 % (39.0-52.0); Hemoglobin 13.9 g/dL (13.0-18.0); Mean Corp Hgb Conc. 36.0 g/dL (33.0-37.0); Mean Corpuscular Volume 85.4 fL (80.0-94.0); Platelet Count 226 10^3/uL (130-400); Red Cell Dist. Width 14.0 % (11.5-14.5)
--- NOTE | 2025-02-18 07:34 | W.PN.HOSP.TC ---
Today's Communication/Plan
-
Discharge today
Assessment / Plan
Assessment / Plan
Physical Exam
General: No respiratory distress.
HEENT: no deformities.
Pulmonary: No wheezes or rales. Limited.
Cardiac: S1/S2 and Regular Rhythm. no Tachycardia.
GI: Soft, obese, Normal Bowel Sounds.
Genito-urinary: Clear Urine and Other (urinary catheter)
Musculoskeletal: No Edema
Neuro: Awake, Alert, Oriented and AO x 3. He followed commands. No tremor.
Psych: calm.
Assessment and plan
#Acute diarrhea
Resolved
Negative C Diff
Changed IV Abx to Ancef
PRN Imodium. No abdominal pain.
# Complicated Proteus UTI
# Right obstructive uropathy
- s/p cysto, stone manipulation, stent 02/12/25
# Proteus bacteremia (02/12/25)
Bacteremia
Severe sepsis with lactic acidosis/ resolved.
He feels better, no pain or fever or chills tired.
No pain in right flank
Off pressure support, stopped IVF
Repeat blood culture 02/14 is NGTD.
Daily weight
WBC is coming down
IV antibiotics completed; discharge on oral Cephalexin, to continue through 02/21/25
Pain control with Tylenol, IV Dilaudid
Appreciate ID, ICU doctor and urology help
Follow-up with Dr. Coleman outpatient
# Right hydronephrosis with obstructing distal ureteral stone s/p cysto, stone manipulation, stent placement on 02/12/[address] Coleman
Appreciate help
c/w Tylenol, give one dose Toradol to help with fever and rigors.
# Herpes simplex Labialis
Complete Valtrex course
# Acute kidney injury/ Metabolic acidosis/ resolved.
Continue Gordon catheter, status post right ureteral stent,plan to dc with Gordon
Improved with IVF
# Hypocalcemia, replaced.
# History of prostatic hypertrophy with large enlarged prostate
Continue home medication. Definitive treatment with outpatient urologist Dr Redd ( [facility]) after treating obstructive issue and infection.
# essential hypertension, held hydrochlorothiazide and lisinopril while hypotension and renal insufficiency. Can resume HCTZ today
# Hypokalemia, replaced
# History of insomnia & essential tremor
# Vitamin D deficiency. s/p dose of vitamin D
# History of CVA
# Obesity, BMI 31
More than 30 minutes spent in discharge including
Final examination of the patient
Summarizing hospital stay
Instructions for continuing care to all relevant caregivers
Preparation of discharge records, prescriptions, and referral forms
Total time spent (in minutes): 36
Anticipated Discharge: Today
Subjective/Interval History
-
Date of Service: February 18, 2025
Patient was seen and examined. He denied any complaints and would like to go home today.
Objective Data
-
Labs:
Laboratory Results
02/18/25
06:52
WBC 10.8
Hgb 13.9
Hct 38.6 L
Plt Count 226 D
Sodium Pending
Potassium Pending
Chloride Pending
Carbon Dioxide Pending
BUN Pending
Creatinine Pending
Glucose Pending
Calcium Pending
Vital Signs:
Vital Signs
Temp Pulse Resp BP Pulse Ox
99.5 F 81 18 151/80 92
02/17/25 22:43 02/17/25 22:43 02/17/25 22:43 02/17/25 22:43 02/17/25 22:43
I&O
02/17/25 02/18/25 02/19/25
06:59 06:59 06:59
Intake Total 1250 / 1250 540 / 540
Output Total 1750 / 1750 3025 / 3025
Balance -500 / -500 -2485 / -2484
[2025-02-18 07:49] LABS: Glucose - Point of Care 128 mg/dl (70-99)
[2025-02-18 07:56] LABS: Blood Urea Nitrogen 12 mg/dl (9-20); Calcium 8.3 mg/dl (8.4-10.2); Carbon Dioxide 27 mmol/L (22-30); Chloride 108 mmol/L (98-107); Estimated Creatinine Clearance 102 ml/min; Glucose 122 mg/dl (70-99); Potassium 3.7 mmol/L (3.5-5.1); Sodium 141 mmol/L (135-145); eGFR > 60.00
[2025-02-18] MEDS: NOVOLOG FLEXPEN-LOW RESISTANCE SC (07:58)
[2025-02-18] MEDS: HEPARIN 5000 UNITS SC (07:59)
[2025-02-18] MEDS: ANCEF 10 IV ×2 (07:59→15:08)
[2025-02-18] MEDS: MYSOLINE 100 MG PO (08:00)
[2025-02-18] MEDS: PROSCAR 5 MG PO (08:01)
[2025-02-18] MEDS: ZESTRIL 40 MG PO (08:01)
[2025-02-18] MEDS: ORETIC 25 MG PO (08:01)
[2025-02-18] MEDS: VALTREX 1000 MG PO (08:01)
--- NOTE | 2025-02-18 09:20 | W.PN.URO.CBU ---
Today's Communication / Plan
-
discharge with Gordon
pt to f/u with Dr Coleman
Assessment / Plan
-
improving proteus urosepsis s/p urgent right ureteral stenting
modest scrotal edema -- related to tract infection
Diagnosis
-
Date of Service: February 18, 2025
-
Patient Diagnosis:
right ureteral stone, sepsis, chronic Gordon due to severe prostatomegaly
s/p cysto, right ureteral stenting on 02/12/2025
Subjective
-
comfortable
Objective
-
Vital Signs
Temp Pulse Resp BP Pulse Ox
97.5 F 87 18 172/86 97
02/18/25 07:00 02/18/25 07:00 02/18/25 07:00 02/18/25 07:00 02/18/25 07:45
Intake and Output
02/17/25 02/18/25 02/19/25
06:59 06:59 06:59
Intake Total 1250 / 1250 540 / 540
Output Total 1750 / 1750 3025 / 3025
Balance -500 / -500 -2485 / -2485
Intake:
Oral fluids 1250 / 1250 540 / 540
Output:
Urine, Gordon 300 / 300 3025 / 3025
Urine, Voided 1450 / 1450
Laboratory Results
02/18/25 06:52
02/18/25 06:52
Physical Exam
-
General - well developed, well nourished, no acute distress
Chest - clear bilaterally
Abdomen - soft, non-tender, positive bowel sounds, no CVAT, no incisional pain or distention
Genitalia - normal
Rectal - normal
Skin - warm & dry with no rash
Neuro - AOx3, no motor deficits
Extremities - no clubbing, no cyanosis, no edema
Incision - clean, dry
Dressing - clean, dry, intact
[2025-02-18 11:31] LABS: Glucose - Point of Care 162 mg/dl (70-99)
[2025-02-18] MEDS: NOVOLOG FLEXPEN-LOW RESISTANCE 1 UNITS SC (11:33)
--- NOTE | 2025-02-18 14:15 | W.PN.ID1 ---
Date of Service
Date of Service: February 18, 2025
Today's Communication
Continue antibiotics.
Assessment / Plan
# Complicated Proteus UTI
# Right obstructive uropathy
- s/p cysto, stone manipulation, stent 02/12/25
# Proteus bacteremia (02/12/25)
# New scrotal edema
# Marked leukocytosis; resolved
# s/p septic shock
# Allergy to sulfa/tetracycline
Recommendations:
- Continue abx (d#7)
- At time of d/c, transition to oral cephalexin, to continue through 02/21/25
����������������������������������������������������������
Chief Complaint
-: UTI (POD#1 urology surgery with stent placement for obstructed left ureter) and Bacteremia
Subjective / Review of Systems
Review of Systems: No Fever and No Chills
Vital Signs / Physical Exam
Vital Signs
Vital Signs
Temp Pulse Resp BP Pulse Ox
97.5 F 87 18 172/86 97
02/18/25 07:00 02/18/25 07:00 02/18/25 07:00 02/18/25 07:00 02/18/25 07:45
Physical Exam
Constitutional: No Acute Distress
Cardiovascular: Regular Rate and S1/S2
Pulmonary: Clear
Gastrointestinal: Soft, Non Tender, Non Distended and Normal Bowel Sounds
Genito-Urinary: Gordon (clear urine) and Clear Urine; Negative Turbid Urine
Extremities: Negative Edema
Neurological: AO x 3
Objective Data
Lab Data
Lab Results
02/18/25 06:52
02/18/25 06:52
Estimated Creat Clear 102 ml/min 02/18/25 06:52
Lactic Acid 3.1 mmol/L (0.7-2.0) H 02/13/25 12:04
Total Bilirubin 0.5 mg/dl (0.2-1.3) 02/13/25 03:09
AST 30 U/L (17-59) 02/13/25 03:09
ALT < 30 U/L (0-50) 02/13/25 03:09
Alkaline Phosphatase 60 U/L (38-126) 02/13/25 03:09
Most recent labs reviewed.
Micro Results:
02/14/25 07:57 Blood Culture - Preliminary
Blood/Venous No Growth in 4 days- Final report to follow
02/15/25 11:26 C. difficile GDH Antigen & Toxins - Final
Feces/Stool Negative for toxigenic C.difficile
02/12/25 09:35 Blood Culture - Final
Blood/Venous Proteus mirabilis
Gram Stain - Final
02/12/25 09:10 Blood Culture - Final
Blood/Venous Proteus mirabilis
Gram Stain - Final
02/12/25 09:35 Urine Culture - Final
Urine Proteus mirabilis
[2025-02-18 15:00] VITALS: BP 149/69
[2025-02-18] MEDS: HEPARIN SC (15:08)
--- NOTE | 2025-02-18 15:34 | PTOTSP ---
Reviewed chart and s/w RN who reports pt is likely being dc'd home today and has been walking independently in the hallway. PT will sign off.
--- NOTE | 2025-02-18 15:43 | CM ---
Chart reviewed. Per hospitalist, patient will d/c home today
Patient will transition to oral abx
Per urology, patient will d/c home w/ puga
Met w/ patient bedside, aware of d/c today. CM offered VN, patient declined, patient knows how to manage puga at home.
Spouse and son in law will transport home
IMM verbally reviewed, copy provided, copy on chart
Plan: Home, no needs
--- NOTE | 2025-02-18 16:36 | W.DCSUMMARY ---
Discharge Summary
Discharge Data
Date of Admission: 02/12/25
Date of Discharge: 02/18/25
Total time spent discharging patient (in min): 36
-
Pending Results: No
Hospital Course
84-year-old male with past medical history of hypertension, CVA, BPH, recent bacteremia (hospitalized at [place]), chronic urinary retention with chronic Gordon -- multiple ER visits in the past for urinary catheter placement and recurrent UTIs who
presented to the [facility] ED complaining of ongoing right flank pain, fever and chills. Patient was admitted with severe sepsis and lactic acidosis. Patient was given intravenous fluids and started on broad spectrum antibiotics. Urology was consulted
and on 02/12/25, patient had cystoscopy, stone manipulation and right double-J stent placement for his sepsis syndrome with obstructing right ureteral stone. It was noted that the patient tolerated the procedure but remained with high fever,
tachycardia and was therefore placed in the intensive care unit overnight. Patient was placed on biacarbonate intravenous fluids for metabolic acidosis. Patient also needed vasopressors with Levophed. Nephrology was consulted given metabolic
acidosis and acute kidney injury. Patient was also treated for hypocalcemia. Infectious was disease specialist was also consulted. Patient was found to have complicated Proteus urinary tract infection with right obstructive uropathy and Proteus
bacteremia. Given patient's scrotal edema, scrotal ultrasound was done showing mild edema (which was thought to be related to patient's urinary tract infection) but no acute findings. Patient's antihypertensives were soon resumed as his blood
pressure improved. Patient had acute diarrhea which resolved.
Discharge Plan
-
Patient Disposition: Home (Routine Discharge)
Discharge Diagnosis/Procedures: # Complicated Proteus Urinary Tract Infection
# Right obstructive uropathy
- s/p cystoscopy, stone manipulation, stent 02/12/25
# Proteus bacteremia (02/12/25)
# Diarrhea
# Right hydronephrosis with obstructing distal ureteral stone s/p cysto, stone manipulation, stent placement on 02/12/[address] Coleman
# Herpes simplex Labialis
# Acute kidney injury/ Metabolic acidosis -- resolved.
# Hypocalcemia
# History of prostatic hypertrophy with large enlarged prostate
# Essential hypertension
# Hypokalemia
# History of insomnia & essential tremor
# Vitamin D deficiency
# History of CVA
# Obesity, BMI 31

Scrotal Ultrasound (as per radiologist's report):
'FINDINGS:
Grayscale and color Doppler imaging with spectral wave forms was performed.
Right testicle: 4.3 x 2.9 x 3.5 cm
Left testicle: 4.6 x 3.2 x 3.0 cm
The testicles are homogeneous in echotexture bilaterally with no evidence of solid or cystic lesions. Blood flow is demonstrated within the testicles with arterial and venous spectral waveforms. Blood flow is symmetric.
Simple right epididymal head cyst measures up to 1.2 cm.
The epididymis on the left is unremarkable.
Small bilateral hydroceles.
There is no evidence of varicocele.
IMPRESSION:

1. Small bilateral hydroceles.
2. Simple right epididymal head cyst.'

CT Chest without contrast (as per radiologist's report):
'FINDINGS:
CHEST:There is a probable small hiatal hernia. The included lung bases contain some mild subsegmental atelectasis and/or scarring.
ABDOMEN:Evaluation of the organs of the abdomen are markedly limited without intravenous contrast, without gross focal intrinsic abnormality of the unopacified liver, gallbladder, pancreas, spleen or adrenal glands with some mild adrenal gland
thickening noted. There is mild right renal collecting system and right ureteral dilatation. There is moderate to marked right and mild left perinephric stranding. There is no left renal collecting system dilatation. Evaluation of the intestinal
tract is markedly limited without oral or intravenous contrast, without intestinal obstruction or free air. No biliary tract dilatation is suspected.
PELVIS:0.3-0.4 cm calculus is seen in the distal right ureter, just proximal to the right ureterovesical junction with mild distal right ureteral dilatation. The urinary bladder is empty containing Gordon catheter balloon. The prostate gland is
mildly enlarged. There is a small to moderate fat only containing left inguinal hernia. No true pelvis free fluid or significant lymphadenopathy is identified.
SKELETON:There are degenerative changes within the included lower thoracic and lumbar spine. Degenerative changes about both hips are noted.
IMPRESSION:
Approximate 0.3-0.4 cm calculus in the distal right ureter, just proximal to the right ureterovesical junction with mild right hydroureteronephrosis and moderate to marked right perinephric stranding.
Mild left perinephric stranding without findings to suggest left-sided obstructive uropathy.
Likely small hiatal hernia.
Gordon catheter balloon within an empty urinary bladder.
Enlarged prostate gland.
Small to moderate size fat only containing left inguinal hernia.'
Condition: Good
Diet: Low Fat, Low Cholesterol and Low Sodium
Activity: As tolerated
Blood Work: CBC, CMP, and Serum Albumin with your primary care provider's office in 2 to 3 days
Referrals:
Mannie Coleman MD [Active, Urology]
Referral Note: call DR COLEMAN [facility] OF UROLOGY [phone] TO SET UP NEXT PHASE TX OF STONE AND EVENTUAL TREATMENT OF URINARY RETENTION
Trace Myles MD [Family Provider, [facility]] - in less than 1 week
Referral Note: Hospitalization follow-up
Additional Discharge Medication Instructions: Cephalexin is your new antibiotic medication.
Your next dose of Vitamin D should be on 02/21/25.
Valacyclovir is for your cold sore -- 1 more dose prescribed.
Meloxicam stopped to prevent side effects. See your doctor this week about this.
Prescriptions:
New
cephalexin 500 mg tablet
500 mg PO QID 4 Days Qty: 16 0RF
Rx Instructions:
Continue taking this medication through February 21, 2025.
cholecalciferol (vitamin D3) 1,250 mcg (50,000 unit) tablet
1,250 mcg PO QWEEK Qty: 7 0RF
valacyclovir 500 mg Tablet
1,000 mg PO BID Qty: 1 0RF
Continued
lisinopril 40 mg Tablet
40 mg PO DAILY
primidone 50 mg Tablet
50 mg PO HS
primidone 50 mg Tablet
100 mg PO DAILY
cyanocobalamin (vitamin B-12) 1,000 mcg Tablet
1,000 mcg PO DAILY
tamsulosin [Flomax] 0.4 mg Capsule
0.8 mg PO QPM
nortriptyline 10 mg Capsule
10 mg PO HS
nortriptyline 10 mg Capsule
10 mg PO HSPRN PRN (Reason: sleep)
hydrochlorothiazide 25 mg Tablet
25 mg PO DAILY
diphenhydramine-acetaminophen [Acetaminophen PM] 25-500 mg Tablet
2 tab PO HS
finasteride 5 mg Tablet
5 mg PO DAILY
Discontinued
meloxicam [Mobic] 15 mg Tablet
15 mg PO DAILY
Discharge Orders:
Discharge Patient (As Directed); Ordered 02/18/25
Ordered By: Jas Kent
Discharge Date and Time
Discharge Date/Time: 02/18/25 17:00
Print Language: NAMIBIAN
== END 2025-02-18 17:00 | disposition home or self-care (01) | DRG 659 ==
LOC: 4 WEST ACU 12:44
PROVIDERS: Nurse Practitioner Family; Student in an Organized Health Care Education/Training Program; ADMITTING PHYSICIAN Internal Medicine; ATTENDING PHYSICIAN Hospitalist; CONSULT PHYSICIAN Internal Medicine; CONSULT PHYSICIAN Internal Medicine Critical Care Medicine; EMERGENCY PHYSICIAN Emergency Medicine; FAMILY PHYSICIAN Family Medicine; OTHER PHYSICIAN Hospitalist; OTHER PHYSICIAN Specialist
PROC: 0T768DZ Dilation of Right Ureter with Intraluminal Device, Via Natural or Artificial Opening Endoscopic (ICD-10-PCS; 2025-02-12)
DX: T83.511A Infection and inflammatory reaction due to indwelling urethral catheter, initial encounter (principal); A41.59 Other Gram-negative sepsis; R65.21 Severe sepsis with septic shock; E87.20 Acidosis, unspecified; N13.6 Pyonephrosis; N17.9 Acute kidney failure, unspecified; I10 Essential (primary) hypertension; R33.8 Other retention of urine; E66.9 Obesity, unspecified; B00.1 Herpesviral vesicular dermatitis; E55.9 Vitamin D deficiency, unspecified; E87.6 Hypokalemia; F51.04 Psychophysiologic insomnia; N40.1 Benign prostatic hyperplasia with lower urinary tract symptoms; Y84.6 Urinary catheterization as the cause of abnormal reaction of the patient, or of later complication, without mention of misadventure at the time of the procedure; Z96.653 Presence of artificial knee joint, bilateral; Z88.2 Allergy status to sulfonamides; Z88.1 Allergy status to other antibiotic agents; Z87.891 Personal history of nicotine dependence; Z86.73 Personal history of transient ischemic attack (TIA), and cerebral infarction without residual deficits; Z79.899 Other long term (current) drug therapy; Z68.31 Body mass index [BMI] 31.0-31.9, adult
CPT/HCPCS: 74018; 74176; 76000; 76870; 80048; 80053; 80202; 81003; 81015; 82306; 82330; 82962; 83036; 83605; 85025; 85027; 87040; 87077; 87086; 87088; 87186; 87205; 87324; 87449; 93005; 93976; 96361; 96365; 96375; 97161; 97166; 99285; C2617

== ENCOUNTER 2025-02-25 06:19 | Day surgery (SDC) | payer MEDICARE, SELFPAY ==
--- NOTE | 2025-02-22 15:11 | PTCARENOTE ---
Abnormal ECG on 02/12/25, Dr. Escobar notified, no further orders at this time.
[2025-02-25 09:17] VITALS: BP 147/72
[2025-02-25] MEDS: NORMOSOL-R/PLASMALYTE-A 1000 IV (09:36)
[2025-02-25 11:00] VITALS: BP 138/67; BP 147/72
[2025-02-25 11:15] VITALS: BP 149/68
[2025-02-25 11:30] VITALS: BP 127/72
[2025-02-25 11:52] VITALS: BP 160/71
[2025-02-25 12:08] VITALS: BP 154/76
[2025-03-01 20:40] LABS: Stone Analysis Mass 23 mg
== END 2025-02-25 12:35 | disposition home or self-care (01) ==
LOC: SDS 06:19
PROVIDERS: ATTENDING PHYSICIAN Surgery
DX: N20.1 Calculus of ureter (principal); N40.1 Benign prostatic hyperplasia with lower urinary tract symptoms; R33.8 Other retention of urine; Z87.440 Personal history of urinary (tract) infections
CPT/HCPCS: 52352; 74018; 76000; 82365; C1894; C2617